=== PATIENT | female | born 1930 | race Caucasian/White ===

== ENCOUNTER → 2016-08-30 | Outpatient (CLI) | payer OTHER ==
[~2016-08-30] MED LIST: AMLO-110 PO; AMOX1TAB43 PO; CLC100 PO; DICL1GEL12 TOP; GLC/500 PO; LISI20TA3 PO; METO-217 PO; METO50TA16 PO; MRLP17 PO; OXYC-57 PO; SIMV40TA2 PO; SIMV40TA4 PO; TRIA0.1C2 TOP; ULT50X PO
[2016-08-30 12:34] LABS: BASO % 0.2 %; BASO ABS # 0.02 K/uL (0-0.2); COMPLETE YES; EOS % 2.1 %; HEMATOCRIT 37.8 % (37-47); IG% 0.3 %; LYMPH % 24.6 %; LYMPH ABS # 2.24 K/uL (1.2-3.4); MEAN CELL VOLUME 87.5 fL (80-100); MEAN CORPUSCULAR HEMOGLOBIN 28.9 pg (25-34); MEAN CORPUSCULAR HGB CONC 33.1 g/dl (32-36); MEAN PLATELET VOLUME 10.1 fL (7.4-10.4); MONO % 7.5 %; NEUT % 65.3 %; PLATELET COUNT 252 K/uL (130-400); RED BLOOD COUNT 4.32 M/uL (4.2-5.4); WHITE BLOOD COUNT 9.12 K/uL (4.8-10.8)
[2016-08-30 13:08] LABS: CALCIUM 9.3 mg/dl (8.5-10.1)
[2016-08-30 13:16] LABS: ESTIMATED AVERAGE GLUCOSE 143 mg/dl; HA1C FLAG Normal (Normal)
[2016-08-30 13:17] LABS: ALT/SGPT 19 U/L (12-78); AST/SGOT 15 U/L (15-37); BLOOD UREA NITROGEN 21 mg/dl (7-18); BUN/CREATININE RATIO 23.9 (10-20); CARBON DIOXIDE 25 mmol/L (21-32); CHLORIDE 108 mmol/L (98-107); CHOLESTEROL 162 mg/dl (0-200); CREATININE 0.87 mg/dl (0.60-1.20); GLUCOSE 125 mg/dl (70-99); POTASSIUM 4.1 mmol/L (3.5-5.1); SODIUM 141 mmol/L (136-145); TRIGLYCERIDES 123 mg/dl (0-150); VERY LOW DENSITY LIPOPROT CALC 25 mg/dl
[2016-08-30 13:41] LABS: ALB/GLOB RATIO 0.9 (0.9-2); ALKALINE PHOSPHATASE 110 U/L (45-117); CHOLESTEROL/HDL RATIO 3.2; HDL CHOLESTEROL 51 mg/dl; LDL CHOLESTEROL CALCULATED 86 mg/dl
== END | disposition home or self-care (01) ==
LOC: C.LABBFT 10:12
PROVIDERS: ATTEND Internal Medicine
DX: E78.00 Pure hypercholesterolemia, unspecified (principal); I10 Essential (primary) hypertension; E11.9 Type 2 diabetes mellitus without complications

== ENCOUNTER → 2016-12-19 | Outpatient (CLI) | payer OTHER | END | disposition home or self-care (01) | LOC: C.LABSPEC 16:51 | PROVIDERS: ATTEND Nurse Practitioner Family | DX: R10.2 Pelvic and perineal pain (principal) ==

== ENCOUNTER → 2016-12-20 | Outpatient (CLI) | payer OTHER | END | disposition home or self-care (01) | LOC: C.LABSPEC 17:31 | PROVIDERS: ATTEND Nurse Practitioner Family | DX: R10.2 Pelvic and perineal pain (principal) ==

== ENCOUNTER 2016-12-28 13:23 | Inpatient (IN) | payer OTHER ==
[~2016-12-28] VITALS: Ht 152.4 cm; Wt 62.1 kg
[~2016-12-28 13:23] MED LIST changes: -AMLO-110 PO; -AMOX1TAB43 PO; -CLC100 PO; -LISI20TA3 PO; -METO-217 PO; -MRLP17 PO; -OXYC-57 PO; -SIMV40TA2 PO; -TRIA0.1C2 TOP
[2016-12-28 14:15] LABS: BASO % 0.2 %; BASO ABS # 0.03 K/uL (0-0.2); COMPLETE YES; HEMATOCRIT 36.6 % (37-47); IG% 0.4 %; LYMPH % 17.6 %; MEAN CELL VOLUME 85.5 fL (80-100); MEAN CORPUSCULAR HEMOGLOBIN 29.2 pg (25-34); MEAN CORPUSCULAR HGB CONC 34.2 g/dl (32-36); MEAN PLATELET VOLUME 10.2 fL (7.4-10.4); MONO % 5.7 %; NEUT % 75.1 %; PLATELET COUNT 231 K/uL (130-400); RED BLOOD COUNT 4.28 M/uL (4.2-5.4); WHITE BLOOD COUNT 15.38 K/uL (4.8-10.8)
[2016-12-28 14:29] LABS: ALT/SGPT 19 U/L (12-78); AST/SGOT 21 U/L (15-37); BLOOD UREA NITROGEN 24 mg/dl (7-18); CALCIUM 9.2 mg/dl (8.5-10.1); CARBON DIOXIDE 23 mmol/L (21-32); CHLORIDE 107 mmol/L (98-107); CREATININE 0.92 mg/dl (0.60-1.20); GLUCOSE 165 mg/dl (70-99); POTASSIUM 3.6 mmol/L (3.5-5.1); SODIUM 139 mmol/L (136-145)
[2016-12-28 14:32] LABS: ALKALINE PHOSPHATASE 116 U/L (45-117)
[2016-12-28] MEDS ORDERED: AMLO-110 PO (14:56)
[2016-12-28] MEDS ORDERED: TRIA0.1C2 TOP (14:56)
[2016-12-28] MEDS ORDERED: CLC100 PO (14:56)
[2016-12-28] MEDS ORDERED: LISI20TA3 PO (14:56)
[2016-12-28] MEDS ORDERED: METO-217 PO (14:56)
[2016-12-28] MEDS ORDERED: SIMV40TA2 PO (14:57)
--- NOTE | 2016-12-28 15:02 | DIAGNOSTIC IMAGING REPORT ---
HEAD CT NONCONTRAST CT DOSE: 1076.59 mGy.cm HISTORY: fall hit head TECHNIQUE: Multiaxial CT images of the head were performed without the use of intravenous contrast. Automated exposure control was utilized for this study. A dose lowering technique was utilized adhering to the principles of ALARA. Comparison: No priors for comparison due to PACS downtime. Findings: The mastoid or cells are clear. Gas at the sella turcica may be venous. Right facial fractures are better appreciated on the same day facial CT. There is hemorrhage within the right max a sinus and right nasal cavity. There is no mass, hematoma, midline shift, acute infarct. White matter hypodensity is nonspecific but suggestive of microvascular ischemic change. The ventricles and sulci demonstrate mild age-related involutional changes. Impression: No acute intracranial abnormality. Right facial fractures are better appreciated on the same day facial CT. Electronically signed by: Scott Thapa M.D. 12/28/2016 3:00 PM Dictated Date/Time: 12/28/2016 2:48 PM
--- NOTE | 2016-12-28 15:04 | DIAGNOSTIC IMAGING REPORT ---
MAXILLOFACIAL CT WITHOUT CONTRAST CLINICAL HISTORY: Fall with head injury. COMPARISON STUDY: None available at time of interpretation due to PACS downtime. TECHNIQUE: A maxillofacial CT was performed without IV contrast. Coronal and sagittal reformats were viewed. A dose lowering technique was utilized adhering to the principles of ALARA. FINDINGS: Numerous acute right-sided facial fractures are noted including comminuted, displaced fractures of the anterior, lateral medial felder of the right maxillary sinus which extend through the right orbital floor. There is a comminuted, displaced right orbital floor fracture with herniation of orbital fat through the defect. There is a comminuted mildly displaced fracture of the lateral wall the right orbit and acute nondisplaced fractures of the right side traumatic arch. In addition, a moderately displaced right nasal bone fracture is noted as well as comminuted, displaced fractures of the nasal septum. There is soft tissue gas and infiltration within the right infraorbital region. There is hemorrhage within the lateral aspect of the right orbit, adjacent to the lateral rectus muscle. Globes are intact. The head will be reported separately. There is suspected hemorrhage within the right sphenoid sinus. Postoperative findings involving the pharynx are incidentally noted. Previous mandibular fixation is noted. Alignment of the temporomandibular joints is anatomic. IMPRESSION: Numerous acute right-sided facial fractures, including comminuted displaced fractures of the right orbital floor with herniation of a small amount of orbital fat through the defect. Fractures of the medial, lateral and anterior felder of the right maxillary sinus, right zygomatic arch, lateral wall of the the right orbit, right nasal bone and nasal septum, as described above. Right globe intact. Small amount of hemorrhage within the lateral aspect of the right orbit. Hemorrhage within the right maxillary and sphenoid sinuses. Right facial soft tissue swelling and soft tissue gas. Electronically signed by: Bubba Kellogg M.D. 12/28/2016 3:03 PM Dictated Date/Time: 12/28/2016 2:48 PM
--- NOTE | 2016-12-28 15:10 | DIAGNOSTIC IMAGING REPORT ---
RIGHT WRIST 4 VIEWS CLINICAL HISTORY: Right wrist pain. FINDINGS: 4 views of the right wrist are obtained. No prior studies are available for comparison at the time of dictation. The skeletal structures are osteopenic. There is a comminuted fracture through the base of the ulnar styloid. There is an impacted and comminuted fracture of the distal radial metaphysis with apex volar angulation. No definite intra-articular extension is seen. The radiocarpal articulation appears maintained. Mild arthritic change is noted throughout the wrist. Soft tissue swelling is seen around the fractures. IMPRESSION: 1. There is an impacted, comminuted, and angulated fracture of the distal radial metaphysis. 2. There is a comminuted fracture through the base of the ulnar styloid. Electronically signed by: Aidan Landers M.D. 12/28/2016 3:09 PM Dictated Date/Time: 12/28/2016 3:07 PM
--- NOTE | 2016-12-28 15:10 | DIAGNOSTIC IMAGING REPORT ---
CHEST ONE VIEW PORTABLE CLINICAL HISTORY: Fall. COMPARISON STUDY: Chest radiograph October 27, 2013. FINDINGS: Lower cervical surgical clips are noted. An old right humeral neck fracture is noted. There is no pneumothorax or pleural effusion. There is no evidence of pulmonary edema. Mild cardiomegaly is noted. Right axilla surgical clips are noted. IMPRESSION: No acute cardiopulmonary findings. No significant change in appearance of the chest. Electronically signed by: Bubba Kellogg M.D. 12/28/2016 3:09 PM Dictated Date/Time: 12/28/2016 3:07 PM
--- NOTE | 2016-12-28 15:11 | DIAGNOSTIC IMAGING REPORT ---
PELVIS 1 OR 2 VIEW ROUTINE CLINICAL HISTORY: Fall. COMPARISON STUDY: CT of the abdomen and pelvis May 21, 2012. FINDINGS: A moderate to large amount stool is noted within the rectum. There is no acute fracture within the pelvis or the hips. Sacroiliac joints and symphysis pubis appear intact. IMPRESSION: No acute fracture within the pelvis or hips. Electronically signed by: Bubba Kellogg M.D. 12/28/2016 3:10 PM Dictated Date/Time: 12/28/2016 3:09 PM
--- NOTE | 2016-12-28 15:36 | DIAGNOSTIC IMAGING REPORT ---
CT SCAN OF THE CERVICAL SPINE CLINICAL HISTORY: Fall. Trauma. COMPARISON STUDY: CT scan of the neck dated 09/18/2005. TECHNIQUE: CT scan of the cervical spine is performed from the skull base to the upper thoracic spine. Images are reviewed in the axial, sagittal, and coronal planes. IV contrast was not administered for this examination. A dose lowering technique was utilized adhering to the principles of ALARA. FINDINGS: Skeletal structures: The skeletal structures are osteopenic. There is no evidence of fracture or subluxation involving the cervical spine. Vertebral body height and alignment are maintained. The odontoid process and lateral masses are intact. The atlantoaxial articulation is preserved noting productive degenerative change. The spinous processes appear intact. A sclerotic lesion in the body of T3 is unchanged dating back to 2005 and likely represents a bone island. Small anterior osteophytes are seen throughout. There is moderate multilevel cervical spondylosis. Uncovertebral and facet arthropathy contribute sterile foraminal narrowing at several levels. Intervertebral discs: There is moderate disc space narrowing seen at C4-C5 and C5-C6. Mild disc space narrowing is seen at the remaining cervical levels. Central canal: Grossly patent. Soft tissues: The prevertebral and paraspinous soft tissues are within normal limits. Atherosclerotic calcification is noted in the carotid bulbs. Numerous surgical clips are scattered throughout the neck. No cervical adenopathy is seen. Calvarium: The visualized calvarium at the skull base appears intact. Brain parenchyma: Partially visualized brain parenchyma the skull base is within normal limits noting age-related involutional change. Sinuses and mastoids: There is fluid within the right sphenoid sinus. The mastoid air cells are well pneumatized. Lung apices: Clear as visualized. IMPRESSION: 1. There is no evidence of fracture or subluxation involving the cervical spine. 2. Osteopenia and spondylotic change as above. 3. Numerous surgical clips are seen throughout the neck. Correlation with the patient's operative history will be required. Electronically signed by: Aidan Landers M.D. 12/28/2016 3:35 PM Dictated Date/Time: 12/28/2016 3:30 PM
[2016-12-28] MEDS ORDERED: AMOXICILLIN/CLAVULANATE TAB 500 MG TAB PO ONE (16:15)
[2016-12-28] MEDS ORDERED: POLYETHYLENE (MIRALAX) 17 GM PACK PO PRN (16:30)
[2016-12-28] MEDS ORDERED: ONDANSETRON INJ 2 MG/ML 2 ML VIAL IV PRN (16:30)
[2016-12-28] MEDS ORDERED: ALUMINUM/MAGNESIUM/SIMETH (MAALOX MAX) 30 ML UDC PO PRN (16:30)
[2016-12-28] MEDS ORDERED: ACETAMINOPHEN 325 MG TAB PO PRN (16:30)
[2016-12-28] MEDS ORDERED: MAGNESIUM HYDROXIDE SUSP 30 ML UDC PO PRN (16:30)
[2016-12-28] MEDS ORDERED: DOCUSATE SODIUM 100 MG CAP PO PRN (16:30)
[2016-12-28 16:50] VITALS: O2SAT 95; Ht 152.4 cm; Wt 62.1 kg
[2016-12-28] MEDS ORDERED: IV FLUIDS COMPLETED PRN (17:00)
--- NOTE | 2016-12-28 17:17 | EMERGENCY ROOM VISIT NOTE ---
History Report prepared by Thien: Kiera Wheeler Under the Supervision of: Dr. Mathew Draper D.O. 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 The patient lives at home by herself. She was taking out her trash and was outside throwing it in the dumpster. When she was walking away her foot caught on the broken sidewalk and the patient fell face first to the ground. She denies passing out or LOC. The patient is currently complaining of right sided facial pain surrounding her right eye and going down into her right cheek. She also reports right wrist pain that is worse with movement. The patient rates her pain as an 8 /10 in severity. She broke her dentures in the fall. A neighbor witnessed the fall and called for help. Pt denies headache, change in vision, chest pain, shortness of breath, nausea, vomiting, diarrhea, abdominal pain, and urinary symptom. The patient denies any injury to the legs. She does not take any blood thinners. Source of History: patient Onset: LICENSED APPRAISER Position: other (global) Symptom Intensity: 8/10 Timing: other (episode) Modifying Factors (Worsening): movement (of right wrist) Associated Symptoms: No LOC, No headache, No chest pain, No SOB, No nausea, No vomiting, No abdominal pain, No melena, No diarrhea, No urinary symptoms Note: Pt notes right sided facial pain and right wrist pain. Pt denies changes in vision. Review of Systems See HPI for pertinent positives & negatives. A total of 10 systems reviewed and were otherwise negative. Past Medical & Surgical Medical Problems: (1) Arthritis (2) Fall (3) Hypertension (4) Oral cancer Family History Cancer Diabetes mellitus Hypertension Social History Smoking Status: Never Smoker Marital Status: Housing Status: lives alone, unknown Occupation Status: retired Current/Historical Medications Scheduled Amlodipine (Norvasc), 5 MG PO QAM Lisinopril (Prinivil), 20 MG PO DAILY Metoprolol Succinate (Toprol Xl), 50 MG PO DAILY Simvastatin (Zocor), 40 MG PO HS Triamcinolone Acetonide (Topic (Triderm), 1 APPLN TOP BID Scheduled PRN Docusate Sodium (Docusate Sodium), 100 MG PO DAILY PRN for Constipation Allergies Coded Allergies: No Known Allergies (Verified , 10/27/13) Physical Exam Vital Signs Date Time Temp Pulse Resp B/P (MAP) Pulse Ox O2 Delivery O2 Flow Rate FiO2 12/28/16 17:01 143/75 12/28/16 16:31 133/56 12/28/16 16:01 145/72 12/28/16 15:31 143/72 12/28/16 14:23 82 19 12/28/16 14:08 85 19 12/28/16 14:06 182/78 12/28/16 14:06 87 12/28/16 13:54 36.5 94 15 182/78 95 Room Air 12/28/16 13:53 95 21 95 Physical Exam GENERAL: alert, well appearing, well nourished, no distress, non-toxic HEAD: normal cephalic. Contusion to the right side of the face with bruising over the right eye, eyelid, and cheek. Nose is deviated to the left with mild oozing from the right nares. EYE EXAM: normal conjunctiva, PERRL and EOM's grossly intact OROPHARYNX: no exudate, no erythema, lips, buccal mucosa, and tongue normal and mucous membranes are moist EARS: TMs clear b/l NECK: supple, no nuchal rigidity, no adenopathy, non-tender CHEST: stable to compression anteriorly and posteriorly LUNGS: clear to auscultation. Normal chest wall mechanics HEART: no murmurs, S1 normal and S2 normal ABDOMEN: abdomen soft, non-tender, normo-active bowel sounds, no masses, no rebound or guarding. PELVIS: stable to compression anteriorly and posteriorly BACK: Back is symmetrical on inspection and there is no deformity, no midline tenderness, no CVA tenderness. Old bruising in the left upper thoracic region. UPPER EXTREMITIES: Pain on palpation to the right wrist, no obvious deformity. Radial pulses 2/4 bilaterally. Grasp and abduction intact. LOWER EXTREMITIES: Small bruise to the right kneecap, abrasion to the left knee , full active and passive range of motion of all joints without tenderness to palpation NEURO EXAM: Awake, alert, oriented to person and place but not year, at baseline per family. Cranial nerves II-XII grossly intact, normal speech, no gross weakness of legs. GCS: 15. Medical Decision & Procedures ER Provider Diagnostic Interpretation: Radiology results as stated below per my review and the radiologist's interpretation: RIGHT WRIST 4 VIEWS CLINICAL HISTORY: Right wrist pain. FINDINGS: 4 views of the right wrist are obtained. No prior studies are available for comparison at the time of dictation. The skeletal structures are osteopenic. There is a comminuted fracture through the base of the ulnar styloid. There is an impacted and comminuted fracture of the distal radial metaphysis with apex volar angulation. No definite intra-articular extension is seen. The radiocarpal articulation appears maintained. Mild arthritic change is noted throughout the wrist. Soft tissue swelling is seen around the fractures. IMPRESSION: 1. There is an impacted, comminuted, and angulated fracture of the distal radial metaphysis. 2. There is a comminuted fracture through the base of the ulnar styloid. Electronically signed by: Aidan Landers M.D. 12/28/2016 3:09 PM Dictated Date/Time: 12/28/2016 3:07 PM PELVIS 1 OR 2 VIEW ROUTINE CLINICAL HISTORY: Fall. COMPARISON STUDY: CT of the abdomen and pelvis May 21, 2012. FINDINGS: A moderate to large amount stool is noted within the rectum. There is no acute fracture within the pelvis or the hips. Sacroiliac joints and symphysis pubis appear intact. IMPRESSION: No acute fracture within the pelvis or hips. Electronically signed by: Bubba Kellogg M.D. 12/28/2016 3:10 PM Dictated Date/Time: 12/28/2016 3:[address] WITHOUT CONTRAST CLINICAL HISTORY: Fall with head injury. COMPARISON STUDY: None available at time of interpretation due to PACS downtime. TECHNIQUE: A maxillofacial CT was performed without IV contrast. Coronal and sagittal reformats were viewed. A dose lowering technique was utilized adhering to the principles of ALARA. FINDINGS: Numerous acute right-sided facial fractures are noted including comminuted, displaced fractures of the anterior, lateral medial felder of the right maxillary sinus which extend through the right orbital floor. There is a comminuted, displaced right orbital floor fracture with herniation of orbital fat through the defect. There is a comminuted mildly displaced fracture of the lateral wall the right orbit and acute nondisplaced fractures of the right side traumatic arch. In addition, a moderately displaced right nasal bone fracture is noted as well as comminuted, displaced fractures of the nasal septum. There is soft tissue gas and infiltration within the right infraorbital region. There is hemorrhage within the lateral aspect of the right orbit, adjacent to the lateral rectus muscle. Globes are intact. The head will be reported separately. There is suspected hemorrhage within the right sphenoid sinus. Postoperative findings involving the pharynx are incidentally noted. Previous mandibular fixation is noted. Alignment of the temporomandibular joints is anatomic. IMPRESSION: Numerous acute right-sided facial fractures, including comminuted displaced fractures of the right orbital floor with herniation of a small amount of orbital fat through the defect. Fractures of the medial, lateral and anterior felder of the right maxillary sinus, right zygomatic arch, lateral wall of the the right orbit, right nasal bone and nasal septum, as described above. Right globe intact. Small amount of hemorrhage within the lateral aspect of the right orbit. Hemorrhage within the right maxillary and sphenoid sinuses. Right facial soft tissue swelling and soft tissue gas. Electronically signed by: Bubba Kellogg M.D. 12/28/2016 3:03 PM Dictated Date/Time: 12/28/2016 2:[address]AST CT DOSE: 1076.59 mGy.cm HISTORY: fall hit head TECHNIQUE: Multiaxial CT images of the head were performed without the use of intravenous contrast. Automated exposure control was utilized for this study. A dose lowering technique was utilized adhering to the principles of ALARA. Comparison: No priors for comparison due to PACS downtime. Findings: The mastoid or cells are clear. Gas at the sella turcica may be venous. Right facial fractures are better appreciated on the same day facial CT. There is hemorrhage within the right max a sinus and right nasal cavity. There is no mass, hematoma, midline shift, acute infarct. White matter hypodensity is nonspecific but suggestive of microvascular ischemic change. The ventricles and sulci demonstrate mild age-related involutional changes. Impression: No acute intracranial abnormality. Right facial fractures are better appreciated on the same day facial CT. Electronically signed by: Scott Thapa M.D. 12/28/2016 3:00 PM Dictated Date/Time: 12/28/2016 2:48 PM CHEST ONE VIEW PORTABLE CLINICAL HISTORY: Fall. COMPARISON STUDY: Chest radiograph October 27, 2013. FINDINGS: Lower cervical surgical clips are noted. An old right humeral neck fracture is noted. There is no pneumothorax or pleural effusion. There is no evidence of pulmonary edema. Mild cardiomegaly is noted. Right axilla surgical clips are noted. IMPRESSION: No acute cardiopulmonary findings. No significant change in appearance of the chest. Electronically signed by: Bubba Kellogg M.D. 12/28/2016 3:09 PM Dictated Date/Time: 12/28/2016 3:[address] SCAN OF THE CERVICAL SPINE CLINICAL HISTORY: Fall. Trauma. COMPARISON STUDY: CT scan of the neck dated 09/18/2005. TECHNIQUE: CT scan of the cervical spine is performed from the skull base to the upper thoracic spine. Images are reviewed in the axial, sagittal, and coronal planes. IV contrast was not administered for this examination. A dose lowering technique was utilized adhering to the principles of ALARA. FINDINGS: Skeletal structures: The skeletal structures are osteopenic. There is no evidence of fracture or subluxation involving the cervical spine. Vertebral body height and alignment are maintained. The odontoid process and lateral masses are intact. The atlantoaxial articulation is preserved noting productive degenerative change. The spinous processes appear intact. A sclerotic lesion in the body of T3 is unchanged dating back to 2005 and likely represents a bone island. Small anterior osteophytes are seen throughout. There is moderate multilevel cervical spondylosis. Uncovertebral and facet arthropathy contribute sterile foraminal narrowing at several levels. Intervertebral discs: There is moderate disc space narrowing seen at C4-C5 and C5-C6. Mild disc space narrowing is seen at the remaining cervical levels. Central canal: Grossly patent. Soft tissues: The prevertebral and paraspinous soft tissues are within normal limits. Atherosclerotic calcification is noted in the carotid bulbs. Numerous surgical clips are scattered throughout the neck. No cervical adenopathy is seen. Calvarium: The visualized calvarium at the skull base appears intact. Brain parenchyma: Partially visualized brain parenchyma the skull base is within normal limits noting age-related involutional change. Sinuses and mastoids: There is fluid within the right sphenoid sinus. The mastoid air cells are well pneumatized. Lung apices: Clear as visualized. IMPRESSION: 1. There is no evidence of fracture or subluxation involving the cervical spine. 2. Osteopenia and spondylotic change as above. 3. Numerous surgical clips are seen throughout the neck. Correlation with the patient's operative history will be required. Electronically signed by: Aidan Landers M.D. 12/28/2016 3:35 PM Dictated Date/Time: 12/28/2016 3:30 PM Laboratory Results 12/28/16 13:00 Red Blood Count 4.28, Mean Corpuscular Volume 85.5, Mean Corpuscular Hemoglobin 29.2, Mean Corpuscular Hemoglobin Concent 34.2, Mean Platelet Volume 10.2, Neutrophils (%) (Auto) 75.1, Lymphocytes (%) (Auto) 17.6, Monocytes (%) (Auto) 5.7, Eosinophils (%) (Auto) 1.0, Basophils (%) (Auto) 0.2, Neutrophils # (Auto) 11.56, Lymphocytes # (Auto) 2.70, Monocytes # (Auto) 0.88, Eosinophils # (Auto) 0.15, Basophils # (Auto) 0.03 12/28/16 13:00 Test 12/28/16 13:00 12/28/16 15:30 White Blood Count 15.38 K/uL (4.8-10.8) Red Blood Count 4.28 M/uL (4.2-5.4) Hemoglobin 12.5 g/dL (12.0-16.0) Hematocrit 36.6 % (37-47) Mean Corpuscular Volume 85.5 fL (80-100) Mean Corpuscular Hemoglobin 29.2 pg (25-34) Mean Corpuscular Hemoglobin Concent 34.2 g/dl (32-36) Platelet Count 231 K/uL (130-400) Mean Platelet Volume 10.2 fL (7.4-10.4) Neutrophils (%) (Auto) 75.1 % Lymphocytes (%) (Auto) 17.6 % Monocytes (%) (Auto) 5.7 % Eosinophils (%) (Auto) 1.0 % Basophils (%) (Auto) 0.2 % Neutrophils # (Auto) 11.56 K/uL (1.4-6.5) Lymphocytes # (Auto) 2.70 K/uL (1.2-3.4) Monocytes # (Auto) 0.88 K/uL (0.11-0.59) Eosinophils # (Auto) 0.15 K/uL (0-0.5) Basophils # (Auto) 0.03 K/uL (0-0.2) RDW Standard Deviation 41.1 fL (36.4-46.3) RDW Coefficient of Variation 13.1 % (11.5-14.5) Immature Granulocyte % (Auto) 0.4 % Immature Granulocyte # (Auto) 0.06 K/uL (0.00-0.02) Anion Gap 9.0 mmol/L (3-11) Est Creatinine Clear Calc Drug Dose 34.8 ml/min Estimated GFR () 64.4 Estimated GFR (Non- 55.6 BUN/Creatinine Ratio 26.0 (10-20) Calcium Level 9.2 mg/dl (8.5-10.1) Total Bilirubin 0.4 mg/dl (0.2-1) Direct Bilirubin < 0.1 mg/dl (0-0.2) Aspartate Amino Transf (AST/SGOT) 21 U/L (15-37) Alanine Aminotransferase (ALT/SGPT) 19 U/L (12-78) Alkaline Phosphatase 116 U/L (45-117) Total Protein 7.6 gm/dl (6.4-8.2) Albumin 3.8 gm/dl (3.4-5.0) Lipase 111 U/L (73-393) Laboratory results per my review. Medications Administered Medications (Trade) Dose Ordered Sig/Abdi Route Start Time Stop Time Status Last Admin Dose Admin Amoxicillin/ Clavulanate Potassium (Augmentin Tab) 500 mg NOW ONCE PO 12/28/16 16:15 12/28/16 16:16 DC 12/28/16 16:41 500 MG ED Course ED COURSE: Vital signs were reviewed and showed hypertensive. The patients medical record was reviewed The above diagnostic studies were performed and reviewed. ED treatments and interventions as stated above. 1340: The patient was evaluated in room A12B. A complete history and physical examination was performed. 1527: I updated the patient and her family at the bedside. 1603: I discussed the patient's case with Dr. Powell of oral maxillofacial surgery. He recommended having ophthalmology evaluate the patient. 1614: I reviewed the patient's case with Dr. Ferreira. [facility] will evaluate the patient for further management. 1615: Augmentin 500 mg PO 1616: Upon reevaluation, the patient is doing well. I discussed my findings with the patient and she understands and agrees with the treatment plan. Based on the patients age, coexisting illnesses, exam and lab findings the decision to treat as an inpatient was made. The patient remained stable while under my care. The patient will be evaluated for further management. 1635: I discussed the patient's case with Dr. Madison of ophthalmology. He will come to the ED to evaluate the patient. Medical Decision Differential diagnoses include major intracranial, cervical, spinal, thoracic, abdominal, pelvic and neurologic injury. Fracture, contusion, sprain, strain, laceration, abrasions included as well. Patient is an 86-year-old female who presents the ER following a fall where she tripped. She hit her right face. She denies any loss consciousness. She does live at home alone by herself. She is currently at her baseline per family. CT head was negative. CT face shows multiple fractures. There is no which are bulbar hematoma on CT. When she opens her eye she states she does not have any double or blurry vision. Eye exam is extremely difficult. Unable to 2 puffs to monitor. Discussed with Dr. Powell and he notes she is a nonoperative candidate due to her age unless severe visual issues. He will follow her up as an outpatient. He did recommend ophthalmology. I did consult ophthalmology to evaluate her in the ER. Discussed the case with orthopedics at 5:10 PM. They recommended a splint and they will reset the fracture of her right distal radial ulnar tomorrow. Patient's pain was controlled while in the ER. Ophthalmology will evaluate her shortly. I discussed case with internal medicine. She was admitted as neither one of her family members was able to take her home and to assist. Medication Reconcilliation Current Medication List: was personally reviewed by me Blood Pressure Screening Patient's blood pressure: Elevated blood pressure Blood pressure disposition: Elevated BP felt to be situational Consults Time Called: 1557 Consulting Physician: Dr. Powell Returned Call: 1603 I discussed the patient's case with Dr. Powell of oral maxillofacial surgery. He recommended having ophthalmology evaluate the patient. Additional Consults: Time Called: 1611 Consulted Physician: Dr. Ferreira Returned Call: 1614 Additional Comments: I reviewed the patient's case with Dr. Ferreira. [facility] will evaluate the patient for further management. Time Called: 1630 Consulted Physician: Dr. Madison Returned Call: 1635 Additional Comments: I discussed the patient's case with Dr. Madison of ophthalmology. He will come to the ED to evaluate the patient. Impression Primary Impression: Fall Additional Impressions: Multiple facial fractures Fracture of distal radius and ulna Scribe Attestation The scribe's documentation has been prepared under my direction and personally reviewed by me in its entirety. I confirm that the note above accurately reflects all work, treatment, procedures, and medical decision making performed by me. Departure Information Dispostion Being Evaluated By Hospitalist Bony Griffiths M.D. (PCP) Problem Qualifiers Primary Impression: Fall Encounter type: initial encounter Qualified Codes: W19.XXXA - Unspecified fall, initial encounter Additional Impressions: Multiple facial fractures Encounter type: initial encounter Fracture type: closed Qualified Codes: S02.92XA - Unspecified fracture of facial bones, initial encounter for closed fracture Fracture of distal radius and ulna Encounter type: initial encounter Fracture type: closed Laterality: right Qualified Codes: S52.501A - Unspecified fracture of the lower end of right radius, initial encounter for closed fracture; S52.601A - Unspecified fracture of lower end of right ulna, initial encounter for closed fracture
[2016-12-28 17:19] LABS: INR 1.1 (0.9-1.1); PARTIAL THROMBOPLASTIN RATIO 1.1; PROTHROMBIN TIME (PATIENT) 11.4 SECONDS (9.0-12.0)
[2016-12-28 17:30] VITALS: BP 150/75; PULSE 98; TEMP 36.5; O2SAT 94
[2016-12-28 18:02] LABS: MANUAL MICROSCOPIC REQUIRED? NO; REVIEW REQ? NO; URINE APPEARANCE CLEAR (CLEAR); URINE BILIRUBIN NEG (NEG); URINE COLOR YELLOW; URINE NITRITE NEG (NEG); URINE PH 7.5 (4.5-7.5); URINE SPECIFIC GRAVITY 1.018 (1.000-1.030); UROBILINOGEN NEG (NEG); ZZURINE CULT IF INDIC CATH NO
--- NOTE | 2016-12-28 18:32 | Ophthalmology Consultation ---
Ophthalmology Consultation Date of Service: Dec 28, 2016. Requested By: [facility] History of Present Illness: 86 y/o female admitted s/p fall. Multiple facial fractures including orbital fxs. CC: "I fell and hit my face" Vision: unchanged Location (of CC): OD Quality/Severity: moderate Duration: 1 day Timing: sudden Context: fell today Associated Signs/Symptoms: pain Modifying Factors: none No other eye complaints. Mood and Affect: confused Past Ocular History: Right Eye: 1. cataract surgery Left Eye: 1. cataract surgery Medications: see EMR Relevant Past Medical History: see EMR [facility] sc w/ near card OD: 20/30 OS: 20/30 IOP: 21 OD and 18 OS w/ [place] VF: full to count fingers OU Motility: full OU External: +ecchymosis/edema OD; The ocular adnexae are unremarkable OS SLE: Lids/Lashes: +ecchymosis/edema OD; wnl OS Conjunctiva/Sclera: +anna/chemosis OD; quiet OS Cornea: clear OU Anterior Chamber: deep and quiet OU Iris: normal OU; no NVI OU Lens: PCIOL OU Dilated fundus exam OD: vitreous: clear w/ pvd optic nerve: 0.2, no edema/pallor/NVD macula: trace druse vessels: wnl Midperiphery: wnl periphery: no RT/RD Dilated fundus exam OS: vitreous: clear w/ pvd optic nerve: 0.2, no edema/pallor/NVD macula: trace druse vessels: wnl Midperiphery: wnl periphery: no RT/RD Assessment and Plan: 1. Orbital and facial fractures OD -no diplopia, no enophthalmos, no globe rupture, no hyphema -no intervention required from ophthalmologic standpoint at this time -recommend no nose blowing; t/c Abx coverage for grm+ -f/u w/ regular eye doc (Dr. Bright Juan) when d/c from [facility] Jenni Madison DO
[2016-12-28] MEDS: AMOXICILLIN/CLAVULANATE TAB 875 MG TAB PO SCH (18:38)
[2016-12-28] MEDS ORDERED: OXYCODONE/ACETAMINOPHEN 5-325 TAB PO PRN (20:30)
[2016-12-28] MEDS: SIMVASTATIN 40 MG TAB PO SCH (21:15)
[2016-12-28] MEDS: HEPARIN SOD 5000 UNIT/0.5 ML CARP SQ SCH (21:16)
--- NOTE | 2016-12-28 21:30 | History and Physical ---
History & Physical Date of Service Dec 28, 2016. History & Physical obs [id number]
--- NOTE | 2016-12-28 21:42 | Progress Note ---
Progress Note Date of Service Dec 28, 2016. Progress Note no s/s infection to correlate w leukocytosis, suspect demargination from fall/ trauma. repeat in AM. follow clinically
--- NOTE | 2016-12-28 23:00 | HISTORY & PHYSICAL EXAMINATION ---
DATE OF ADMISSION: 12/28/2016 CHIEF COMPLAINT: Face and arm pain. HISTORY OF PRESENT ILLNESS: The patient is a very pleasant 86-year-old female accompanied by her family, who notes she was taking out the trash and then when she was walking, she believes she caught a crack in the sidewalk with her foot. She knows it was definitely a trip and mechanical fall and she had no syncope, no loss of consciousness, and she remembers the events, but unfortunately she fell really predominantly on the right side of her face and her right arm. She again had no loss of consciousness; however, since then, she has had a lot of right-sided facial pain, pain around her eye, her right cheek, right wrist and hand pain. She denies any chest pain, abdominal pain. No shortness of breath. No other pain anywhere else. REVIEW OF SYSTEMS: Otherwise entirely negative except for as above. PAST MEDICAL HISTORY: Includes arthritis, type 2 diabetes, hypertension, hyperlipidemia. MEDICATIONS: Amlodipine 5 mg daily, lisinopril 20 mg daily, metoprolol succinate 50 mg daily, simvastatin 40 mg daily. SURGICAL HISTORY: Includes cataract surgery, throat mass resection, closed treatment of a prior arm fracture and a leg fracture. FAMILY HISTORY: Includes cancer and hypertension. SOCIAL HISTORY: She is not a smoker. She is . She lives at home with good supportive family. She is obviously retired. PHYSICAL EXAMINATION: VITAL SIGNS: Temp 36.5, pulse 94, respiratory rate 15, blood pressure 182/78, 95% on room air. GENERAL: She is awake, alert, oriented x3, pleasant, fairly hard of hearing, but with loud talking, she is able to communicate well, although she appears a little bit uncomfortable. In general, she is in no acute distress. HEENT: Normocephalic. Unfortunately, the right side of her face is swollen, her eye is swollen shut. There is diffuse ecchymosis really from just above her eye down to around just above the angle of her jaw. Mucous membranes are moist. CARDIOVASCULAR: Regular without rubs, murmurs or gallops. LUNGS: Clear to auscultation bilaterally, no rales, rhonchi or wheezes, with good effort. ABDOMEN: Soft, nondistended, nontender. No masses or organomegaly. EXTREMITIES: Without cyanosis, clubbing or edema, no calf tenderness, but her right upper extremity shows a deformity at the wrist. It is somewhat swollen and obviously tender. SKIN: No rashes, pallor or icterus outside of what is noted above on her face and her arm. MUSCULOSKELETAL: Shows the facial and wrist deformities. Otherwise, no gross lesions. NEUROLOGIC: Shows cranial nerves II-XII to be grossly intact as best can be assessed. Obviously, the right side of her face is somewhat difficult to assess due to the swelling but things appear intact. MENTAL STATE: Shows good recent and remote recall. Normal mood and affect. Good judgment and insight. LABORATORY DATA AND DIAGNOSTICS: CBC shows a white count of 15.4 with hemoglobin of 12.5, platelets of 231. PT of 11.4 with a PTT of 27.3. Complete metabolic panel with sodium 139, potassium 3.6, chloride 107, CO2 of 23, BUN 24, creatinine 0.92, calcium 9.2, glucose 165. Total bili 0.4 with a direct of 0.1, AST 21, ALT 19, alkaline phosphatase 116. Total protein of 7.6, albumin 3.8, lipase 111. Urinalysis is yellow, clear, specific gravity 1.018, 2+ ketones, 5-10 epithelial cells. Chest x-ray shows no acute cardiopulmonary findings and no change in appearance from prior. C-spine CT shows skeletal structures being osteopenic. No evidence of fracture or subluxation involving the C-spine. Vertebral body height and alignment are maintained. Odontoid process and lateral masses are intact. Atlantoaxial articulation preserved, noting productive degenerative change. Spinous processes intact. Sclerotic lesion in the body of T3 unchanged dating back to 2005, likely representing a bone island. Small anterior osteophyte seen throughout. Moderate multilevel cervical spondylosis. Uncovertebral and facet arthropathy contributing to several foraminal narrowing levels. Moderate disc space narrowing C4-C5 and C5-C6. Mild disc space narrowing at the remaining cervical levels. Prevertebral and paraspinous soft tissue were within normal limits. Atherosclerotic calcification noted in the carotid bulb. Numerous surgical clips scattered throughout the neck. No cervical adenopathy seen. Partially visualized brain parenchyma and skull base within normal limits, noting age-related involutional changes. Visualized calvarium at the skull base appears intact. Fluid in the right sphenoid sinus. Mastoid air cells are well pneumatized. Head CT shows no acute intracranial abnormality. Maxillofacial shows numerous right-sided facial fractures including a comminuted, displaced fracture of the right orbital floor with herniation of a small amount of orbital fat through the defect, fractures of the medial, lateral and anterior felder of the right maxillary sinus, right zygomatic arch, lateral wall of the right orbit, right nasal bone, nasal septum. Right globe is intact. Small amount of hemorrhage within the lateral aspect of the right orbit. Hemorrhage within the right maxillary and sphenoid sinuses. Right facial soft tissue swelling and soft tissue gas. Pelvis x-ray shows no acute fracture of the pelvis or the hips, and wrist x-ray shows an impacted, comminuted, angulated fracture of the distal radial metaphysis, comminuted fracture throughout the base of the ulnar styloid. ASSESSMENT AND PLAN: 1. Fall. This appears to be a mechanical fall. Fortunately, there is no evidence of syncope or other pathology at play. Unfortunately, she has had significant fractures from the fall. 2. Facial fractures. We will consult ophthalmology in regard to the orbital fracture, although I suspect it will be a case of allowing to heal on its own. The ER has already discussed the case with maxillofacial surgery who felt no acute intervention was needed. Certainly willing to follow up with the patient in the office next week. 3. Wrist fracture. Orthopedic consult for further management. Pain control to be ordered as well. 4. Osteopenia/osteoporosis. Check a vitamin D level. Otherwise, outpatient followup and management. 5. Hypertension. Continue her home meds. There is no evidence that orthostasis or syncope caused the fall and in fact she has actually been quite hypertensive since she has been here. 6. Hyperlipidemia. Continue her home meds. 7. Sinus fracture, have to treat as sort of a traumatic sinusitis. The ER started Augmentin, we will continue this. 8. Deep venous thrombosis prophylaxis, heparin subcu. DISPOSITION: She will be admitted to the [facility] with a high likelihood of needing rehab, PT/OT evals, and treatment. MERLY
[2016-12-28 23:24] VITALS: BP 152/77; PULSE 100; TEMP 36.3; O2SAT 97
[2016-12-29 00:18] VITALS: BP 149/73; PULSE 74; TEMP 36.6; O2SAT 93
[2016-12-29 06:49] VITALS: BP 151/70; PULSE 78; TEMP 36.7; O2SAT 96
[2016-12-29 07:05] LABS: BASO % 0.2 %; BASO ABS # 0.02 K/uL (0-0.2); COMPLETE YES; EOS % 0.5 %; HEMATOCRIT 35.2 % (37-47); IG% 0.5 %; LYMPH % 11.7 %; MEAN CELL VOLUME 85.2 fL (80-100); MEAN CORPUSCULAR HEMOGLOBIN 27.8 pg (25-34); MEAN CORPUSCULAR HGB CONC 32.7 g/dl (32-36); MEAN PLATELET VOLUME 9.5 fL (7.4-10.4); MONO % 9.2 %; NEUT % 77.9 %; PLATELET COUNT 209 K/uL (130-400); RED BLOOD COUNT 4.13 M/uL (4.2-5.4); WHITE BLOOD COUNT 12.87 K/uL (4.8-10.8)
[2016-12-29] MEDS: AMOXICILLIN/CLAVULANATE TAB 875 MG TAB PO SCH ×2 (08:24→16:29)
[2016-12-29] MEDS: AMLODIPINE BESYLATE 5 MG TAB PO SCH (08:25)
[2016-12-29] MEDS: LISINOPRIL 20 MG TAB PO SCH (08:26)
[2016-12-29] MEDS: METOPROLOL SUCC 50MG EXT REL TAB PO SCH (08:26)
[2016-12-29] MEDS: HEPARIN SOD 5000 UNIT/0.5 ML CARP SQ SCH ×2 (08:31→20:49)
[2016-12-29 15:01] VITALS: BP 150/75; PULSE 76; TEMP 36.5; O2SAT 95
[2016-12-29 15:30] VITALS: O2SAT 95
[2016-12-29] MEDS ORDERED: BISACODYL 10 MG SUPP PR STA (17:10)
[2016-12-29] MEDS: DOCUSATE SODIUM 100 MG CAP PO SCH (20:48)
[2016-12-29] MEDS: SIMVASTATIN 40 MG TAB PO SCH (20:48)
[2016-12-29] MEDS ORDERED: NSS + 20MEQ KCL 1000ML 1,000 ML IV SCH (21:00)
[2016-12-29] MEDS: MoRPHine SULFATE 4 MG/ML 1 ML CARP\\VIAL IV PRN (22:19)
[2016-12-30 00:18] VITALS: BP 149/73; PULSE 74; TEMP 36.6; O2SAT 93
--- NOTE | 2016-12-30 00:28 | Progress Note ---
Subjective Date of Service: Dec 29, 2016. Subjective Pt evaluation today including: conversation w/ patient, physical exam, chart review, lab review, review of studies, review of inpatient medication list Pain: denies facial pain or arm pain PO Intake: fair Voiding: incontinence during my visit she was pleasantly confused she knew she was in the hospital but couldn't tell me how she had fallen or where she denied any vaginal discharge, itching, or pain outpatient office records show she was seen about 10 days ago and had a vaginal culture showing strep Problem List Medical Problems: (1) Fracture of distal radius and ulna Status: Acute (2) Multiple facial fractures Status: Acute Review of Systems Respiratory: No shortness of breath Cardiac: No chest pain Abdomen: No pain Female : No dysuria Objective Vital Signs Date Time Temp Pulse Resp B/P (MAP) Pulse Ox O2 Delivery O2 Flow Rate FiO2 12/29/16 15:30 95 Room Air 12/29/16 15:01 36.5 76 18 150/75 (100) 95 Room Air 12/29/16 07:55 Room Air 12/29/16 06:49 36.7 78 15 151/70 (97) 96 Room Air 12/28/16 23:24 36.3 100 18 152/77 (102) 97 Room Air 12/28/16 23:20 Room Air Physical Exam General Appearance: no apparent distress, + pertinent finding (marked swelling of entire right half of the face with eccymoses; right eye eyelids swollen and nearly shut) Eyes: + abnormal sclerae exam (subconjunctival hemorrhage, right) ENT: + pertinent finding (in the posterior pharynx on the right is a large, white, mass-like structure) Neck: no JVD Respiratory/Chest: lungs clear (minimal dry rales bases), no respiratory distress, no accessory muscle use Cardiovascular: regular rate, rhythm, no gallop, no murmur Abdomen: normal bowel sounds, soft, no organomegaly, + distended (mild) Extremities: no pedal edema Neurologic/Psychiatric: alert, + disoriented Comments: rectal - copious brown stool in vault, no masses vulva - erythematous and irritated with modest foul-smelling discharge Laboratory Results Last 24 Hours Test 12/29/16 06:28 White Blood Count 12.87 K/uL Red Blood Count 4.13 M/uL Hemoglobin 11.5 g/dL Hematocrit 35.2 % Mean Corpuscular Volume 85.2 fL Mean Corpuscular Hemoglobin 27.8 pg Mean Corpuscular Hemoglobin Concent 32.7 g/dl Platelet Count 209 K/uL Mean Platelet Volume 9.5 fL Neutrophils (%) (Auto) 77.9 % Lymphocytes (%) (Auto) 11.7 % Monocytes (%) (Auto) 9.2 % Eosinophils (%) (Auto) 0.5 % Basophils (%) (Auto) 0.2 % Neutrophils # (Auto) 10.04 K/uL Lymphocytes # (Auto) 1.50 K/uL Monocytes # (Auto) 1.18 K/uL Eosinophils # (Auto) 0.07 K/uL Basophils # (Auto) 0.02 K/uL RDW Standard Deviation 40.2 fL RDW Coefficient of Variation 12.9 % Immature Granulocyte % (Auto) 0.5 % Immature Granulocyte # (Auto) 0.06 K/uL 25-Hydroxy Vitamin D Total 23.8 ng/ml Assessment and Plan 86yo female - 1. numerous facial fractures, right-sided orbital fracture, sinus fractures - seen by ophtho, stable with nothing to do from optical standpoint on augmentin prophylactically to avoid sins infection pain control 2. right distal radius/ulna fracture - await orthopedic consultation splint in place 3. mild dehydration - start IVF 4. vaginitis - 12/21/16 vaginal culture with strep augmentin for #1 will cover such 5. h/o lichen planus - previously used triamcinolone ointment BID to affected areas on vulva today, on exam, there was considerable erythema and foul-smell but no lichen planus that I could see 6. HTN - controlled 7. CKD stage 3 - creatinine stable 8. leukocytosis - improving; suspect 2nd to stress of fall 9. DVT proph - heparin 10. confusion - baseline dementia ? encephalopathy 2nd to fall/head injury? other? supportive care, follow 11. abdominal distension - suspect 2nd to constipation given rectal exam findings; miralax, dulcolax suppository 12. FEN - NS hydration, repeat BMP in am 13. PT, OT both suggest she will need rehab following this admission In my clinical judgment this beneficiary meets acute admission criteria, established by [facility], that includes being hospitalized through two midnights. Continued [facility] stay due to: inadequate po fluid intake, inadequate oral pain control, ambulation difficulties, multiple IV medications needed Discharge planning: uncertain
[2016-12-30 06:46] VITALS: BP 162/71; PULSE 75; TEMP 36.5; O2SAT 94
[2016-12-30 08:49] LABS: BASO % 0.2 %; BASO ABS # 0.02 K/uL (0-0.2); COMPLETE YES; EOS % 0.8 %; HEMATOCRIT 35.9 % (37-47); IG% 0.3 %; LYMPH % 14.8 %; LYMPH ABS # 1.75 K/uL (1.2-3.4); MEAN CELL VOLUME 85.3 fL (80-100); MEAN CORPUSCULAR HEMOGLOBIN 27.8 pg (25-34); MEAN CORPUSCULAR HGB CONC 32.6 g/dl (32-36); MEAN PLATELET VOLUME 9.6 fL (7.4-10.4); MONO % 8.7 %; NEUT % 75.2 %; PLATELET COUNT 221 K/uL (130-400); RED BLOOD COUNT 4.21 M/uL (4.2-5.4); WHITE BLOOD COUNT 11.79 K/uL (4.8-10.8)
[2016-12-30] MEDS: AMLODIPINE BESYLATE 5 MG TAB PO SCH (08:54)
[2016-12-30] MEDS: LISINOPRIL 20 MG TAB PO SCH (08:54)
[2016-12-30] MEDS: METOPROLOL SUCC 50MG EXT REL TAB PO SCH (08:54)
[2016-12-30] MEDS: AMOXICILLIN/CLAVULANATE TAB 875 MG TAB PO SCH ×2 (08:55→15:30)
[2016-12-30] MEDS: DOCUSATE SODIUM 100 MG CAP PO SCH ×2 (08:55→20:00)
[2016-12-30] MEDS: CHOLECALCIFEROL 1000 INTER.UNIT TAB PO SCH (08:56)
[2016-12-30] MEDS: POLYETHYLENE (MIRALAX) 17 GM PACK PO SCH (08:56)
[2016-12-30] MEDS: HEPARIN SOD 5000 UNIT/0.5 ML CARP SQ SCH ×2 (09:04→20:47)
[2016-12-30 09:22] LABS: BUN/CREATININE RATIO 31.1 (10-20); CALCIUM 8.7 mg/dl (8.5-10.1); CREATININE 0.76 mg/dl (0.60-1.20); MAGNESIUM 2.1 mg/dl (1.8-2.4); POTASSIUM 3.9 mmol/L (3.5-5.1)
[2016-12-30] MEDS: MoRPHine SULFATE 4 MG/ML 1 ML CARP\\VIAL IV PRN ×2 (09:58→20:00)
[2016-12-30] MEDS ORDERED: NURSING VERBAL MED ORDER SCH (10:15)
[2016-12-30] MEDS ORDERED: BUPIVACAINE 0.5 % 5 MG/1 ML PF 10ML VIAL INFIL ONE (10:30)
[2016-12-30] MEDS ORDERED: NURSING VERBAL MED ORDER ONE (10:30)
--- NOTE | 2016-12-30 11:37 | DIAGNOSTIC IMAGING REPORT ---
RIGHT WRIST 2 VIEW CLINICAL HISTORY: 86 years-old Female presenting with POST REDUCTION Right. TECHNIQUE: Frontal, oblique, and lateral views of the right wrist were obtained. COMPARISON: 12/28/2016. FINDINGS: Fiberglas splint projects over the right wrist partially obscuring underlying osseous detail. Again demonstrated is the distal radial metaphysis fracture with apparent slight decreased apex volar angulation. 3 mm of cortical discontinuity along the dorsal aspect with evidence of impaction again noted. Previously seen ulnar styloid fracture not as well appreciated on the current radiographs. IMPRESSION: Decreased apex volar angulation across the impacted and minimally displaced distal radial metaphysis fracture (Colles' fracture). Electronically signed by: Richard Nicole M.D. 12/30/2016 11:35 AM Dictated Date/Time: 12/30/2016 11:33 AM
--- NOTE | 2016-12-30 12:10 | Orthopedic Consultation ---
Orthopedic Consultation Date of Consultation: Dec 30, 2016. Attending Physician: Reece Childers MD Reason for Consultation: Right wrist fx History of Present Illness 86 yo female who tripped and fell onto right side of face/body/arm. C/O pain in right wrist, no neurologic symptoms Past Medical/Surgical History Medical Problems: (1) Fracture of distal radius and ulna Status: Acute (2) Multiple facial fractures Status: Acute Family History Cancer Diabetes mellitus Hypertension Social History Smoking Status: Never Smoker Marital Status: Housing Status: lives alone, unknown Occupation Status: retired Allergies Coded Allergies: No Known Allergies (Verified , 10/27/13) Home Medications Scheduled Amlodipine (Norvasc), 5 MG PO QAM Lisinopril (Prinivil), 20 MG PO DAILY Metoprolol Succinate (Toprol Xl), 50 MG PO DAILY Simvastatin (Zocor), 40 MG PO HS Triamcinolone Acetonide (Topic (Triderm), 1 APPLN TOP BID Scheduled PRN Docusate Sodium (Docusate Sodium), 100 MG PO DAILY PRN for Constipation Current Inpatient Medications Current Inpatient Medications Medications (Trade) Dose Ordered Sig/Abdi Route Start Time Stop Time Status Last Admin Dose Admin Acetaminophen (Tylenol Tab) 650 mg Q4H PRN PO 12/28/16 16:30 01/27/17 16:29 Al Hydrox/Mg Hydrox/Simethicone (Maalox Max Susp) 15 ml Q4H PRN PO 12/28/16 16:30 01/27/17 16:29 Magnesium Hydroxide (Milk Of Magnesia Susp) 30 ml Q6H PRN PO 12/28/16 16:30 01/27/17 16:29 Ondansetron HCl (Zofran Inj) 4 mg Q6H PRN IV 12/28/16 16:30 01/27/17 16:29 12/29/16 22:25 4 MG Heparin Sodium (Porcine) (Heparin Sq 5000 Unit/0.5ml) 5,000 unit Q12H SQ 12/28/16 21:00 01/27/17 20:59 12/30/16 09:04 5,000 UNIT Amoxicillin/ Clavulanate Potassium (Augmentin Tab) 875 mg BIDM PO 12/28/16 18:15 01/07/17 18:14 12/30/16 08:55 875 MG Amlodipine Besylate (Norvasc Tab) 5 mg QAM PO 12/29/16 09:00 01/28/17 08:59 12/30/16 08:54 5 MG Docusate Sodium (coLACE CAP) 100 mg DAILY PRN PO 12/28/16 16:30 01/27/17 16:29 Lisinopril (Zestril Tab) 20 mg DAILY PO 12/29/16 09:00 01/28/17 08:59 12/30/16 08:54 20 MG Metoprolol Succinate (Toprol Xl Tab) 50 mg DAILY PO 12/29/16 09:00 01/28/17 08:59 12/30/16 08:54 50 MG Simvastatin (Zocor Tab) 40 mg HS PO 12/28/16 21:00 01/27/17 20:59 12/28/16 21:15 40 MG Miscellaneous (Iv Fluids Completed) 1 ea PRN PRN N/A 12/28/16 17:00 12/28/17 16:59 Oxycodone/ Acetaminophen (Percocet 5-325mg Tab) 1 tab Q4H PRN PO 12/28/16 20:30 01/11/17 20:29 Morphine Sulfate (MoRPHine SULFATE INJ) 4 mg Q4 PRN IV 12/28/16 20:30 01/11/17 20:29 12/30/16 09:58 4 MG Polyethylene (Miralax Powder Packet) 17 gm DAILY PO 12/30/16 09:00 01/27/17 16:29 12/30/16 08:56 17 GM Docusate Sodium (coLACE CAP) 100 mg BID PO 12/29/16 21:00 01/28/17 20:59 12/30/16 08:55 100 MG Cholecalciferol (Vitamin D Tab) 2,000 inter.unit QAM PO 12/30/16 09:00 01/29/17 08:59 12/30/16 08:56 2,000 INTER.UNIT Physical Exam Date Time Temp Pulse Resp B/P (MAP) Pulse Ox O2 Delivery O2 Flow Rate FiO2 12/30/16 08:00 Room Air 12/30/16 06:46 36.5 75 18 162/71 (101) 94 Room Air 12/30/16 00:31 Room Air 12/30/16 00:18 36.6 74 16 149/73 (98) 93 Room Air 12/29/16 15:30 95 Room Air 12/29/16 15:01 36.5 76 18 150/75 (100) 95 Room Air Head: + pertinent finding (signifcant swlling and bruising over R eye) Neck: supple Respiratory/Chest: chest non-tender Cardiovascular: regular rate, rhythm Extremities/Musculoskelatal: + pertinent finding (TTP R DR, 2+ rp, lt sens/ motor fxn intact, slight swelling dorsally, no open wounds) Laboratory Results Last 24 Hours Test 12/30/16 08:30 White Blood Count 11.79 K/uL Red Blood Count 4.21 M/uL Hemoglobin 11.7 g/dL Hematocrit 35.9 % Mean Corpuscular Volume 85.3 fL Mean Corpuscular Hemoglobin 27.8 pg Mean Corpuscular Hemoglobin Concent 32.6 g/dl Platelet Count 221 K/uL Mean Platelet Volume 9.6 fL Neutrophils (%) (Auto) 75.2 % Lymphocytes (%) (Auto) 14.8 % Monocytes (%) (Auto) 8.7 % Eosinophils (%) (Auto) 0.8 % Basophils (%) (Auto) 0.2 % Neutrophils # (Auto) 8.86 K/uL Lymphocytes # (Auto) 1.75 K/uL Monocytes # (Auto) 1.02 K/uL Eosinophils # (Auto) 0.10 K/uL Basophils # (Auto) 0.02 K/uL RDW Standard Deviation 40.4 fL RDW Coefficient of Variation 13.0 % Immature Granulocyte % (Auto) 0.3 % Immature Granulocyte # (Auto) 0.04 K/uL Sodium Level 137 mmol/L Potassium Level 3.9 mmol/L Chloride Level 107 mmol/L Carbon Dioxide Level 23 mmol/L Anion Gap 7.0 mmol/L Blood Urea Nitrogen 24 mg/dl Creatinine 0.76 mg/dl Est Creatinine Clear Calc Drug Dose 42.1 ml/min Estimated GFR () 81.2 Estimated GFR (Non- 70.0 BUN/Creatinine Ratio 31.1 Random Glucose 108 mg/dl Calcium Level 8.7 mg/dl Magnesium Level 2.1 mg/dl Assessment & Plan R distal Radius fx She sustained a fall onto the right side. X-rays demonstrate evidence of prior distal radius as well as distal ulnar fractures. She has some dorsal angulation to her fracture. We performed a hematoma block and performed a closed reduction of the right distal radius. There is some mild residual dorsal translation but angulation is resolved. This should heal fine with nonoperative measures. She is to stay in the sugar tong splint and be nonweightbearing on the right upper wrist. We will check surveillance x-rays in about a week to ensure she is maintaining reduction.
--- NOTE | 2016-12-30 12:14 | [facility] Operative Report ---
Operative Report Operative Date Dec 30, 2016. Pre-Operative Diagnosis Angulated right distal radius fracture Post-Operative Diagnosis Same Procedure(s) Performed Closed reduction right distal radius fracture Surgeon Mynor [employer] Support Surgeon(s) blane tejeda pa-c Estimated Blood Loss none Findings As above Drains none Anesthesia hematoma block Complication(s) None Disposition bedside Indications 86-year-old female who sustained a fall onto the outstretched right upper extremity. She is grossly had a fracture on the side. She has some dorsal angulation to the distal radius fracture. Description of Procedure The patient was identified and the laterality was confirmed. Under sterile conditions I performed a hematoma block with 10 mL of Marcaine. I then performed a closed reduction maneuver applying distraction and then reversing the deforming forces. A well-padded sugar tong splint was placed. Postreduction x-rays were obtained and demonstrated adequate latter day of alignment. The patient was neurovascularly intact after the procedure. I attest to the content of the Intraoperative Record and any orders documented therein. Any exceptions are noted below.
[2016-12-30 15:06] VITALS: BP 145/74; PULSE 67; TEMP 36.6; O2SAT 95
[2016-12-30 16:30] VITALS: O2SAT 95
--- NOTE | 2016-12-30 17:05 | PROGRESS NOTE ---
DATE: 12/30/2016 HISTORY OF PRESENT ILLNESS: Mrs. Foley is a very pleasant 86-year-old white female with a history of hypertension, chronic kidney disease, type 2 diabetes mellitus, and osteoarthritis, who sustained a fall on 12/28/2016, resulting in a displaced fracture of the distal right radius and ulna and multiple facial fractures. She underwent closed reduction of the right distal radius earlier today and tolerated that procedure well. She is currently being seen in room 351, bed 2. She offers no complaints at this time. Her pain is well controlled. She is frustrated by the fact that she fell and injured herself. She denies any chest pain, heaviness, tightness, or pressure. No shortness of breath, dyspnea on exertion, orthopnea or PND. No palpitations, syncope or near syncope. She does not have any neck or hand pain. MEDICATIONS: 1. MiraLax 17 grams daily. 2. Vitamin D 2000 international units daily. 3. Colace 100 mg b.i.d. 4. Norvasc 5 mg daily. 5. Lisinopril 20 mg daily. 6. Toprol-XL 50 mg daily. 7. Heparin 5000 units subcutaneous injection q. 12 hours. 8. Simvastatin 40 mg daily. 9. Percocet 5/325, 1 or 2 tablets every 4 hours as needed for moderate to sever pain. 10. Morphine sulfate 4 mg IV q. 4 hours p.r.n. for severe breakthrough pain. 11. Augmentin 875 b.i.d. 12. Tylenol p.r.n. 13. Maalox Max p.r.n. 14. Milk of magnesia p.r.n. 15. Zofran p.r.n. ALLERGIES: NKDA. PHYSICAL EXAMINATION: VITAL SIGNS: Temperature is 36.6 degrees Celsius, pulse 67 and regular, respiratory rate is 14 and unlabored, blood pressure is 145/74, and SpO2 is 95% on room air. GENERAL: The patient is in no acute distress. HEENT: Right facial ecchymoses are noted. Right conjunctival hemorrhage also noted. EOMs are intact. Sclerae anicteric. Mucous membranes moist. NECK: Without JVD. CHEST AND LUNGS: Clear to auscultation throughout all lung stanley. No wheezes, rales or rhonchi. CARDIOVASCULAR: S1 and S2 are regular without obvious murmur, gallop or rub. ABDOMEN: Benign. EXTREMITIES: Without clubbing, cyanosis or edema. Calves are soft and nontender. Right lower arm is in a splint. NEUROLOGIC: The patient is awake, alert and oriented. Pleasant and cooperative. Answers questions appropriately. Speech is clear. Follows commands. Gait pattern not assessed. LABORATORIES: White blood cell count is 11.79, hemoglobin 11.7 g/dL, hematocrit 35.9%, and platelet count 221,000. Sodium is 137 mmol/L, potassium 3.9 mmol/L, BUN 24 mg/dL and creatinine 0.76 mg/dL. ASSESSMENT: 1. Fall, which resulted in a displaced distal right radial and ulnar fracture, status post closed reduction of right distal radius earlier today. 2. Dehydration, renal function stable. 3. Hypertension. 4. Chronic kidney disease. 5. Type 2 diabetes mellitus. 6. Dyslipidemia, on local company intermodal truck driver statin. 7. Mild anemia, probably secondary to recent injuries and hemodilution with IV fluids. PLAN: 1. Ongoing pain management as per orthopedics. 2. The patient tolerated closed reduction of right distal radial fracture earlier today. 3. Continue amlodipine 5 mg daily. 4. Continue Zestril 20 mg daily. 5. Continue Toprol-XL 50 mg daily. 6. Zocor 40 mg each evening. 7. Continue subcutaneous heparin for DVT prophylaxis along with other measures. 8. Monitor daily laboratories. 9. We will continue to follow along while hospitalized. Attending Attestation: I agree with the maher components of HOLLY Chapman's progress note documentation. Reece MORELAND
[2016-12-30] MEDS: SIMVASTATIN 40 MG TAB PO SCH (20:04)
[2016-12-31 00:12] VITALS: BP 155/69; PULSE 67; TEMP 36.5; O2SAT 93
[2016-12-31 07:08] VITALS: BP 135/74; PULSE 68; TEMP 36.2; O2SAT 95
[2016-12-31 07:23] LABS: HEMATOCRIT 34.9 % (37-47); MEAN CELL VOLUME 86.4 fL (80-100); MEAN CORPUSCULAR HEMOGLOBIN 27.5 pg (25-34); MEAN CORPUSCULAR HGB CONC 31.8 g/dl (32-36); MEAN PLATELET VOLUME 10.1 fL (7.4-10.4); PLATELET COUNT 223 K/uL (130-400); RED BLOOD COUNT 4.04 M/uL (4.2-5.4); WHITE BLOOD COUNT 11.07 K/uL (4.8-10.8)
[2016-12-31] MEDS: METOPROLOL SUCC 50MG EXT REL TAB PO SCH (08:57)
[2016-12-31] MEDS: AMOXICILLIN/CLAVULANATE TAB 875 MG TAB PO SCH ×3 (08:57→19:28)
[2016-12-31] MEDS: DOCUSATE SODIUM 100 MG CAP PO SCH ×2 (08:58→20:30)
[2016-12-31] MEDS: LISINOPRIL 20 MG TAB PO SCH (08:58)
[2016-12-31] MEDS: CHOLECALCIFEROL 1000 INTER.UNIT TAB PO SCH (08:58)
[2016-12-31] MEDS: AMLODIPINE BESYLATE 5 MG TAB PO SCH (08:58)
[2016-12-31] MEDS: POLYETHYLENE (MIRALAX) 17 GM PACK PO SCH (08:59)
[2016-12-31] MEDS: HEPARIN SOD 5000 UNIT/0.5 ML CARP SQ SCH ×2 (09:04→20:30)
[2016-12-31 15:05] VITALS: BP 113/55; PULSE 73; TEMP 36.2; O2SAT 96
[2016-12-31 16:30] VITALS: O2SAT 96
--- NOTE | 2016-12-31 17:23 | Progress Note ---
Subjective Date of Service: Dec 31, 2016. Subjective this pt is pleasantly confused, has facial swelling and bruising, right arm is in a splint Problem List Medical Problems: (1) Fracture of distal radius and ulna Status: Acute (2) Multiple facial fractures Status: Acute Review of Systems Constitutional: No fever, No chills, No weakness Respiratory: No cough, No sputum, No wheezing, No shortness of breath Cardiac: No chest pain, No edema Abdomen: No pain, No nausea, No vomiting, No diarrhea Neurologic: No memory loss, No weakness Psychiatric: No depression symptoms, No anhedonism Objective Vital Signs Date Time Temp Pulse Resp B/P (MAP) Pulse Ox O2 Delivery O2 Flow Rate FiO2 12/31/16 07:35 Room Air 12/31/16 07:08 36.2 68 17 135/74 (94) 95 Room Air 12/31/16 00:16 Room Air 12/31/16 00:12 36.5 67 17 155/69 (97) 93 Room Air 12/30/16 16:30 95 Room Air 12/30/16 15:06 36.6 67 18 145/74 (97) 95 Room Air Physical Exam General Appearance: WD/WN, + mild distress Eyes: PERRL, + pertinent finding (facial swelling ecchymosis and conjunctival hemorrhage) Respiratory/Chest: chest non-tender, lungs clear, normal breath sounds Cardiovascular: regular rate, rhythm, no murmur Abdomen: normal bowel sounds, non tender, soft Extremities: + pertinent finding (has splint) Laboratory Results Last 24 Hours Test 12/31/16 05:55 White Blood Count 11.07 K/uL Red Blood Count 4.04 M/uL Hemoglobin 11.1 g/dL Hematocrit 34.9 % Mean Corpuscular Volume 86.4 fL Mean Corpuscular Hemoglobin 27.5 pg Mean Corpuscular Hemoglobin Concent 31.8 g/dl RDW Standard Deviation 41.8 fL RDW Coefficient of Variation 13.1 % Platelet Count 223 K/uL Mean Platelet Volume 10.1 fL Assessment and Plan Fall, which resulted in a displaced distal right radial and ulnar fracture, status post closed reduction of right distal radius Hypertension. metoprolol,amlodipine, zestril Chronic kidney disease., ivf and hold nephrotoxins Type 2 diabetes mellitus, ssi Mild anemia, follow for post op changes subcutaneous heparin for DVT prophylaxis will need placement Continued [facility] stay due to: inadequate po fluid intake, inadequate oral pain control, ambulation difficulties, multiple IV medications needed Discharge planning: uncertain
[2016-12-31] MEDS: MoRPHine SULFATE 4 MG/ML 1 ML CARP\\VIAL IV PRN (19:51)
[2016-12-31] MEDS ORDERED: NURSING VERBAL MED ORDER ONE (20:15)
[2016-12-31] MEDS ORDERED: HALOPERIDOL LACTATE 5 MG/ML 1 ML VIAL IM ONE (20:15)
[2016-12-31] MEDS: SIMVASTATIN 40 MG TAB PO SCH (20:30)
[2016-12-31 22:57] VITALS: BP 152/69; PULSE 76; TEMP 36.3; O2SAT 95
[2017-01-01 07:15] VITALS: BP 158/74; PULSE 81; TEMP 36.3; O2SAT 96
[2017-01-01] MEDS: AMOXICILLIN/CLAVULANATE TAB 875 MG TAB PO SCH ×2 (08:30→17:45)
[2017-01-01] MEDS: AMLODIPINE BESYLATE 5 MG TAB PO SCH (12:48)
[2017-01-01] MEDS: DOCUSATE SODIUM 100 MG CAP PO SCH ×2 (12:48→20:42)
[2017-01-01] MEDS: METOPROLOL SUCC 50MG EXT REL TAB PO SCH (12:48)
[2017-01-01] MEDS: POLYETHYLENE (MIRALAX) 17 GM PACK PO SCH (12:48)
[2017-01-01] MEDS: LISINOPRIL 20 MG TAB PO SCH (12:49)
[2017-01-01] MEDS: CHOLECALCIFEROL 1000 INTER.UNIT TAB PO SCH (12:49)
[2017-01-01] MEDS: HEPARIN SOD 5000 UNIT/0.5 ML CARP SQ SCH ×2 (12:49→20:37)
--- NOTE | 2017-01-01 13:37 | Orthopedic Progress Note ---
Orthopedic Progress Note Date of Service Jan 01, 2017. Subjective Additional Notes: Pt resting comfortably in chair. Appears comfortable. Objective Splint intact, Fingers pink and warm. Cap refill less than 2 seconds. Date Time Temp Pulse Resp B/P (MAP) Pulse Ox O2 Delivery O2 Flow Rate FiO2 01/01/17 07:35 Room Air 01/01/17 07:15 36.3 81 16 158/74 (102) 96 Room Air 12/31/16 23:15 Room Air 12/31/16 22:57 36.3 76 16 152/69 (96) 95 Room Air 12/31/16 16:30 96 Room Air 12/31/16 15:05 36.2 73 17 113/55 (74) 96 Room Air Assessment & Plan Assessment: C/R Right Wrist Fx Plan: Continue Splint at this time. Ortho will sign off at this time NWB on right wrist/forearm
--- NOTE | 2017-01-01 13:41 | Consultant Recommendations ---
Auxiliary Engineer Recommendations Date of Service Jan 01, 2017. Auxiliary Engineer Recommendations Keep splint clean and dry. May shower with waterproof covering over the splint. If splint becomes soaked, please call the office. [phone] No weight to be placed on the Right wrist or forearm. Move fingers regularly Keep the wrist elevated on 1 or 2 pillows when at rest. If the fingers become purplish, are numb or tingling; If you experience and increase in pain, please call the office. Follow up with Dr Lowe in 7-10 days. Call for appointment. [phone]
[2017-01-01 15:06] VITALS: BP 149/85; PULSE 81; TEMP 35.9; O2SAT 95
--- NOTE | 2017-01-01 15:36 | DIAGNOSTIC IMAGING REPORT ---
CT HEAD WITHOUT CONTRAST (CT) CLINICAL HISTORY: Head trauma. Head pain. COMPARISON STUDY: A 2417 TECHNIQUE: Axial CT of the brain is performed from the vertex to the skull base. IV contrast was not administered for this examination. A dose lowering technique was utilized adhering to the principles of ALARA. CT DOSE: 614.27 mGy.cm FINDINGS: No intra or extra-axial mass lesions are visualized. There is no CT evidence of acute cortical infarction. There is no evidence of midline shift. There is no acute hemorrhage. No calvarial fractures are visualized. There are patchy white matter hypodensities likely on a small vessel basis. There is no evidence of pathologic ventricular dilatation. There is opacification the right maxilla sinus. Multiple right maxilla sinus fractures are visualized. There is a fracture the right lateral orbital wall. There is a nasal bone fracture on the right. There is a right zygomatic arch fracture. There is a suspected right orbital floor fracture. IMPRESSION: 1. Multiple right-sided facial fractures. These were described in a prior facial CT scan dated 12/28/2016 2. Opacification of the right maxillary sinus 3. No acute intracranial findings. No evidence of acute hemorrhage. Electronically signed by: Arturo Reyes M.D. 01/01/2017 3:34 PM Dictated Date/Time: 01/01/2017 3:32 PM
[2017-01-01] MEDS: SODIUM CHLORIDE 0.9% 1000ML 1,000 ML IV SCH (18:20)
--- NOTE | 2017-01-01 18:58 | Progress Note ---
Subjective Date of Service: Jan 01, 2017. Subjective Patient received Haldol last night and today has been persistently sedate I evaluated the patient at the bedside with her family in the room she is able to be awakened and swat at me but fell back asleep easily, she offers no focal loss of spontaneous movement, has persistent facial ecchymosis and right arm splint Problem List Medical Problems: (1) Fracture of distal radius and ulna Status: Acute (2) Multiple facial fractures Status: Acute Review of Systems Constitutional: + weakness, + problem reported (patient's lethargy prevents full review of systems), No fever, No chills Objective Vital Signs Date Time Temp Pulse Resp B/P (MAP) Pulse Ox O2 Delivery O2 Flow Rate FiO2 01/01/17 15:06 35.9 81 16 149/85 (106) 95 Room Air 01/01/17 07:35 Room Air 01/01/17 07:15 36.3 81 16 158/74 (102) 96 Room Air 12/31/16 23:15 Room Air 12/31/16 22:57 36.3 76 16 152/69 (96) 95 Room Air Physical Exam General Appearance: WD/WN, + pertinent finding (patient to be awake and she does protect airway she is resistant to taking oral intake or medications) Eyes: + pertinent finding (patient resisted my evaluation of her pupils) ENT: + pertinent finding (patient resistant or looks inspection and gag reflex testing) Respiratory/Chest: chest non-tender, lungs clear, + pertinent finding (her breathing appears unlabored) Cardiovascular: regular rate, rhythm, no murmur Abdomen: normal bowel sounds, non tender, soft Neurologic/Psychiatric: + pertinent finding (she awakens she does not want be bothered she has recognized her family earlier) Assessment and Plan Fall, which resulted in a displaced distal right radial and ulnar fracture, status post closed reduction of right distal radius Sundowning behavior with intramuscular Haldol given with persistent sedative affects, stat CT scan of the head did not show any subdural or subarachnoid bleeding or any new ischemic change this is likely medication effect will continue supportive care including low flow IV fluid until this resolves Hypertension. metoprolol,amlodipine, zestril Chronic kidney disease., hold nephrotoxins Type 2 diabetes mellitus, ssi, watch for low blood glucose with poor by mouth intake given sedation Mild anemia, this is acute blood loss anemia from fracture and injury subcutaneous heparin for DVT prophylaxis will need placement, family is looking for [facility] and/or snf facility Continued [facility] stay due to: inadequate po fluid intake, inadequate oral pain control, ambulation difficulties, multiple IV medications needed Discharge planning: uncertain
[2017-01-01] MEDS: SIMVASTATIN 40 MG TAB PO SCH (20:42)
[2017-01-01 22:49] VITALS: BP 130/72; PULSE 67; TEMP 36.4; O2SAT 97
[2017-01-02 07:18] VITALS: BP 144/78; PULSE 76; TEMP 36.5; O2SAT 97
[2017-01-02 08:53] LABS: BASO % 0.2 %; BASO ABS # 0.02 K/uL (0-0.2); COMPLETE YES; EOS % 4.7 %; HEMATOCRIT 37.4 % (37-47); IG% 0.6 %; LYMPH % 24.6 %; LYMPH ABS # 2.48 K/uL (1.2-3.4); MEAN CELL VOLUME 86.6 fL (80-100); MEAN CORPUSCULAR HEMOGLOBIN 27.5 pg (25-34); MEAN CORPUSCULAR HGB CONC 31.8 g/dl (32-36); MEAN PLATELET VOLUME 9.8 fL (7.4-10.4); MONO % 8.2 %; NEUT % 61.7 %; PLATELET COUNT 230 K/uL (130-400); RED BLOOD COUNT 4.32 M/uL (4.2-5.4); WHITE BLOOD COUNT 10.09 K/uL (4.8-10.8)
[2017-01-02] MEDS: CHOLECALCIFEROL 1000 INTER.UNIT TAB PO SCH (09:03)
[2017-01-02] MEDS: AMOXICILLIN/CLAVULANATE TAB 875 MG TAB PO SCH ×2 (09:04→18:17)
[2017-01-02] MEDS: DOCUSATE SODIUM 100 MG CAP PO SCH ×2 (09:04→21:02)
[2017-01-02] MEDS: LISINOPRIL 20 MG TAB PO SCH (09:05)
[2017-01-02] MEDS: AMLODIPINE BESYLATE 5 MG TAB PO SCH (09:05)
[2017-01-02] MEDS: METOPROLOL SUCC 50MG EXT REL TAB PO SCH (09:06)
[2017-01-02] MEDS: POLYETHYLENE (MIRALAX) 17 GM PACK PO SCH (09:07)
[2017-01-02] MEDS: HEPARIN SOD 5000 UNIT/0.5 ML CARP SQ SCH ×2 (09:10→21:06)
[2017-01-02 09:18] LABS: BUN/CREATININE RATIO 27.1 (10-20); CALCIUM 8.8 mg/dl (8.5-10.1); CREATININE 0.66 mg/dl (0.60-1.20); MAGNESIUM 2.2 mg/dl (1.8-2.4); POTASSIUM 3.7 mmol/L (3.5-5.1)
[2017-01-02] MEDS: SODIUM CHLORIDE 0.9% 1000ML 1,000 ML IV SCH (13:24)
[2017-01-02 15:08] VITALS: BP 132/70; PULSE 82; TEMP 36.6; O2SAT 96
--- NOTE | 2017-01-02 18:57 | Progress Note ---
Subjective Date of Service: Jan 02, 2017. Subjective Patient is returned to her usual pleasant self mildly confused has no focal complaints or problems, decision for disposition is still being under had with the family Problem List Medical Problems: (1) Fracture of distal radius and ulna Status: Acute (2) Multiple facial fractures Status: Acute Review of Systems Constitutional: + problem reported (review of systems is inaccurate due to the level of dementia this patient displays she claims to be in no pain) Objective Vital Signs Date Time Temp Pulse Resp B/P (MAP) Pulse Ox O2 Delivery O2 Flow Rate FiO2 01/02/17 07:18 36.5 76 15 144/78 (100) 97 Room Air 01/01/17 22:49 36.4 67 16 130/72 (91) 97 Room Air 01/01/17 19:40 Room Air 01/01/17 15:06 35.9 81 16 149/85 (106) 95 Room Air Physical Exam General Appearance: WD/WN, no apparent distress Eyes: PERRL (does have a right subconjunctival hemorrhage), EOMI Neck: supple, no JVD Respiratory/Chest: chest non-tender, lungs clear, normal breath sounds Cardiovascular: regular rate, rhythm, no murmur Abdomen: normal bowel sounds, non tender, soft, + pertinent finding (right hand is splinted but fingers are mobile capillary refill and sensation) Neurologic/Psychiatric: alert, + disoriented Assessment and Plan Fall, which resulted in a displaced distal right radial and ulnar fracture, status post closed reduction of right distal radius Sundowning behavior with intramuscular Haldol given with persistent sedative affects now resolved, stat CT scan of the head did not show any subdural or subarachnoid bleeding or any new ischemic change patient is back to her baseline pleasantly confused Hypertension. Continues to be controlled with metoprolol,amlodipine, zestril Chronic kidney disease., Continue to hold nephrotoxins Type 2 diabetes mellitus, ssi, she is back to eating food Mild anemia, this is acute blood loss anemia from fracture and injury subcutaneous heparin for DVT prophylaxis family strongly considering for [facility] to improve function then transition to [facility] facility Continued [facility] stay due to: inadequate po fluid intake, inadequate oral pain control, ambulation difficulties, multiple IV medications needed Discharge planning: uncertain
[2017-01-02] MEDS: SIMVASTATIN 40 MG TAB PO SCH (21:02)
[2017-01-02 23:11] VITALS: BP 153/82; PULSE 70; TEMP 36.6; O2SAT 95
[2017-01-03 06:51] LABS: HEMATOCRIT 36.8 % (37-47); MEAN CELL VOLUME 86.6 fL (80-100); MEAN CORPUSCULAR HEMOGLOBIN 27.5 pg (25-34); MEAN CORPUSCULAR HGB CONC 31.8 g/dl (32-36); MEAN PLATELET VOLUME 9.8 fL (7.4-10.4); PLATELET COUNT 242 K/uL (130-400); RED BLOOD COUNT 4.25 M/uL (4.2-5.4); WHITE BLOOD COUNT 11.15 K/uL (4.8-10.8)
[2017-01-03 07:12] VITALS: BP 169/75; PULSE 76; TEMP 36.8; O2SAT 95
[2017-01-03] MEDS: DOCUSATE SODIUM 100 MG CAP PO SCH (08:41)
[2017-01-03] MEDS: METOPROLOL SUCC 50MG EXT REL TAB PO SCH (08:41)
[2017-01-03] MEDS: AMOXICILLIN/CLAVULANATE TAB 875 MG TAB PO SCH ×2 (08:41→18:21)
[2017-01-03] MEDS: AMLODIPINE BESYLATE 5 MG TAB PO SCH (08:41)
[2017-01-03] MEDS: LISINOPRIL 20 MG TAB PO SCH (08:41)
[2017-01-03] MEDS: POLYETHYLENE (MIRALAX) 17 GM PACK PO SCH (08:41)
[2017-01-03] MEDS: CHOLECALCIFEROL 1000 INTER.UNIT TAB PO SCH (08:42)
[2017-01-03] MEDS: HEPARIN SOD 5000 UNIT/0.5 ML CARP SQ SCH (08:45)
[2017-01-03 10:00] VITALS: BP 120/73; PULSE 68; TEMP 36.7; O2SAT 97
[2017-01-03 11:48] VITALS: BP 120/73; PULSE 68; TEMP 36.7; O2SAT 97
[2017-01-03] MEDS ORDERED: AMOX1TAB43 PO (14:37)
[2017-01-03] MEDS ORDERED: MRLP17 PO (14:37)
[2017-01-03] MEDS ORDERED: OXYC-57 PO (14:37)
[2017-01-03] MEDS ORDERED: CLC100 PO (14:37)
--- NOTE | 2017-01-03 14:40 | Discharge Instructions ---
Discharge Instructions Date of Service Jan 03, 2017. Admission Reason for Admission: FALL Discharge Discharge Diagnosis / Problem: facial contusion, right wrist fracture Discharge Goals Goal(s): Diagnostic testing, Therapeutic intervention Activity Recommendations Activity Level: Assistance Required Therapies: Physical Therapy, Occupational Therapy Lifting Limitations: no more than 5 pounds . Additional Information Patient informed of condition: Yes Advance Directives: Yes DNR: No Level of Care: Acute Rehab Communicable Disease: No Prognosis: Stable Martinez Catheter: No Instructions / Follow-Up Instructions / Follow-Up Fall, which resulted in a displaced distal right radial and ulnar fracture, status post closed reduction of right distal radius Sundowning behavior with intramuscular Haldol given 12/31- with persistent sedative affects now resolved, stat CT scan of the head did not show any subdural or subarachnoid bleeding or any new ischemic change patient is back to her baseline pleasantly confused facial contusion with mucosal breech and concern for sinusitis, complete augmentin Hypertension. Continues to be controlled with metoprolol,amlodipine, zestril Chronic kidney disease. stage 3 Type 2 diabetes mellitus, diabetic diet Mild anemia, this is acute blood loss anemia from fracture and injury Current Hospital Diet Patient's current hospital diet: Regular Diet Discharge Diet Recommended Diet: Regular Diet Procedures Procedures Performed: Closed reduction right distal radius fracture Pending Studies Studies pending at discharge: no Medical Emergencies . Who to Call and When: Medical Emergencies: If at any time you feel your situation is an emergency, please call 911 immediately. . Non-Emergent Contact Non-Emergency issues call your: Specialist (orhtopaedics) Call Non-Emergent contact if: temperature is above 101, your pain is unusual for you . . "Provider Documentation" section prepared by Garcia Santiago. . Railway Engineer Recommendations Railway Engineer Recommendations: Keep splint clean and dry. May shower with waterproof covering over the splint. If splint becomes soaked, please call the office. [phone] No weight to be placed on the Right wrist or forearm. Move fingers regularly Keep the wrist elevated on 1 or 2 pillows when at rest. If the fingers become purplish, are numb or tingling; If you experience and increase in pain, please call the office. Follow up with Dr Lowe in 7-10 days. Call for appointment. [phone] Core Measure Problem Core Measures: None
--- NOTE | 2017-01-03 14:41 | Discharge Summary ---
Discharge Summary Date of Service Jan 03, 2017. Discharge Summary Admission Date: Dec 28, 2016 at 17:11 Discharge Date: Jan 03, 2017 Discharge Disposition: Rehab Principal Diagnosis: right radial fracture closed reduction facial contusions sundowning behavio Immunizations: Have You Had Influenza Vaccine: No History of Tetanus Vaccine?: No History of Pneumococcal: No History of Hepatitis B Vaccine: No Medication Reconciliation New Medications: Amoxicillin & Pot Clavulanate (Amoxicillin/Clavulanate P) 1 Tab Tab 875 MG PO BIDM, #14 TAB Oxycodone/Acetaminophen 5MG/325MG (Percocet 5MG/325MG) Tab 1 TAB PO Q4H PRN for moderate to severe pain, #20 TAB PAIN Polyethylene (Miralax) 17 Gm Pow 17 GM PO DAILY, #30 DOSE Changed Medications: Docusate Sodium (Docusate Sodium) 100 Mg Cap 100 MG PO BID, #30 DOSE (Changed from: DAILY; Removed Reason) Continued Medications: Amlodipine (Norvasc) 5 Mg Tab 5 MG PO QAM Lisinopril (Prinivil) 20 Mg Tab 20 MG PO DAILY Metoprolol Succinate (Toprol Xl) 50 Mg Tabcr 50 MG PO DAILY Simvastatin (Zocor) 40 Mg Tab 40 MG PO HS Discontinued Medications: Triamcinolone Acetonide (Topic (Triderm) 0.1 % Cre 1 APPLN TOP BID 1% OINTMENT* Discharge Exam Review of Systems: Constitutional: No fever, No chills Respiratory: No cough, No sputum, No wheezing Cardiovascular: No chest pain, No orthopnea Physical Exam: General Appearance: WD/WN, no apparent distress Eyes: + pertinent finding (right subconjunctival hemorrhage) Neck: supple, no JVD Respiratory/Chest: chest non-tender, lungs clear, normal breath sounds Cardiovascular: regular rate, rhythm, no murmur Extremities: + pertinent finding (right arm cast in place good capillary refill and sensation distally) Hospital Course Fall, which resulted in a displaced distal right radial and ulnar fracture, status post closed reduction of right distal radius Sundowning behavior with intramuscular Haldol given 12/31- with persistent sedative affects now resolved, stat CT scan of the head did not show any subdural or subarachnoid bleeding or any new ischemic change patient is back to her baseline pleasantly confused facial contusion with mucosal breech and concern for sinusitis, complete augmentin Hypertension. Continues to be controlled with metoprolol,amlodipine, zestril Chronic kidney disease. stage 3 Type 2 diabetes mellitus, diabetic diet Mild anemia, this is acute blood loss anemia from fracture and injury Total Time Spent: Greater than 30 minutes This includes examination of the patient, discharge planning, medication reconciliation, and communication with other providers. Discharge Instructions Please refer to the electronic Patient Visit Report (Discharge Instructions) for additional information.
[2017-01-03 15:09] VITALS: BP 157/79; PULSE 74; TEMP 36.6; O2SAT 97
== END 2017-01-03 19:38 | DRG 562 ==
LOC: EDBD 13:23 → C.EDA 13:24 → C.MSW 16:25 → ENRESERV 16:44 → OBSVTOIN 17:11
PROVIDERS: ADMIT Family Medicine; ATTEND Internal Medicine
PROC: 0PSHXZZ Reposition Right Radius, External Approach (ICD-10-PCS; principal; 2016-12-30)
DX: S52.501A Unspecified fracture of the lower end of right radius, initial encounter for closed fracture (principal); G93.40 Encephalopathy, unspecified; F05 Delirium due to known physiological condition; D62 Acute posthemorrhagic anemia; S02.19XA Other fracture of base of skull, initial encounter for closed fracture; S02.31XA Fracture of orbital floor, right side, initial encounter for closed fracture; N18.3 Chronic kidney disease, stage 3 (moderate); S52.611A Displaced fracture of right ulna styloid process, initial encounter for closed fracture; I12.9 Hypertensive chronic kidney disease with stage 1 through stage 4 chronic kidney disease, or unspecified chronic kidney disease; M19.90 Unspecified osteoarthritis, unspecified site; W18.39XA Other fall on same level, initial encounter; Y92.480 Sidewalk as the place of occurrence of the external cause; J01.80 Other acute sinusitis; E11.22 Type 2 diabetes mellitus with diabetic chronic kidney disease; E86.0 Dehydration; M81.0 Age-related osteoporosis without current pathological fracture; E78.5 Hyperlipidemia, unspecified; N76.0 Acute vaginitis; B95.5 Unspecified streptococcus as the cause of diseases classified elsewhere; D72.829 Elevated white blood cell count, unspecified; K59.00 Constipation, unspecified; R14.0 Abdominal distension (gaseous); M85.80 Other specified disorders of bone density and structure, unspecified site; Z87.2 Personal history of diseases of the skin and subcutaneous tissue; Z79.899 Other long term (current) drug therapy

== ENCOUNTER → 2017-03-26 | Outpatient (CLI) | payer OTHER ==
[~2017-03-26] MED LIST changes: +AMLO-110 PO; +AMOX1TAB43 PO; +CLC100 PO; -DICL1GEL12 TOP; -GLC/500 PO; +LISI20TA3 PO; +METO-217 PO; -METO50TA16 PO; +MRLP17 PO; +OXYC-57 PO; +SIMV40TA2 PO; -SIMV40TA4 PO; -ULT50X PO
== END | disposition home or self-care (01) ==
LOC: C.MAMM 08:34
PROVIDERS: ATTEND Internal Medicine
DX: S42.309A Unspecified fracture of shaft of humerus, unspecified arm, initial encounter for closed fracture (principal); X58.XXXA Exposure to other specified factors, initial encounter; M81.0 Age-related osteoporosis without current pathological fracture; M85.88 Other specified disorders of bone density and structure, other site

== ENCOUNTER → 2017-04-24 | Outpatient (CLI) | payer OTHER ==
[2017-04-24 08:24] LABS: CHOLESTEROL/HDL RATIO 2.5
[2017-04-24 09:33] LABS: ESTIMATED AVERAGE GLUCOSE 137 mg/dl; HA1C FLAG Normal (Normal)
== END ==
LOC: C.LABCC 08:02
PROVIDERS: ATTEND Internal Medicine
DX: E11.9 Type 2 diabetes mellitus without complications (principal); E78.5 Hyperlipidemia, unspecified

== ENCOUNTER → 2017-05-03 | Outpatient (CLI) | payer OTHER ==
[2017-05-03 08:47] LABS: BASO % 0.2 %; BASO ABS # 0.02 K/uL (0-0.2); COMPLETE YES; EOS % 3.7 %; IG% 0.4 %; LYMPH % 25.8 %; LYMPH ABS # 2.41 K/uL (1.2-3.4); MEAN CELL VOLUME 84.8 fL (80-100); MEAN CORPUSCULAR HEMOGLOBIN 26.9 pg (25-34); MEAN CORPUSCULAR HGB CONC 31.7 g/dl (32-36); MEAN PLATELET VOLUME 9.8 fL (7.4-10.4); MONO % 9.4 %; NEUT % 60.5 %; PLATELET COUNT 299 K/uL (130-400); RED BLOOD COUNT 3.42 M/uL (4.2-5.4); WHITE BLOOD COUNT 9.35 K/uL (4.8-10.8)
[2017-05-03 08:54] LABS: BLOOD UREA NITROGEN 26 mg/dl (7-18); BUN/CREATININE RATIO 32.7 (10-20); CALCIUM 8.4 mg/dl (8.5-10.1); CARBON DIOXIDE 25 mmol/L (21-32); CHLORIDE 105 mmol/L (98-107); GLUCOSE 109 mg/dl (70-99); SODIUM 136 mmol/L (136-145)
[2017-05-03 17:55] LABS: URINE APPEARANCE CLEAR (CLEAR); URINE BILIRUBIN NEG (NEG); URINE COLOR YELLOW; URINE NITRITE NEG (NEG); URINE PH 6.5 (4.5-7.5); URINE SPECIFIC GRAVITY 1.021 (1.000-1.030); UROBILINOGEN NEG (NEG)
[2017-05-03 17:57] LABS: MANUAL MICROSCOPIC REQUIRED? NO; REVIEW REQ? NO
== END ==
LOC: C.LABCC 08:05
PROVIDERS: ATTEND Internal Medicine
DX: R53.83 Other fatigue (principal); R11.10 Vomiting, unspecified; R29.6 Repeated falls

== ENCOUNTER → 2017-05-22 | Outpatient (CLI) | payer OTHER ==
--- NOTE | 2017-05-22 07:22 | DIAGNOSTIC IMAGING REPORT ---
CT OF THE RIGHT HIP WITHOUT CONTRAST CLINICAL HISTORY: Right hip pain following fall. Evaluate for fracture. COMPARISON STUDY: Pelvis radiograph December 28, 2016. FINDINGS: No acute fracture of the proximal right femur is noted. A pessary device is in place. There are healing fractures of the right superior and inferior pubic rami. The superior pubic ramus fracture extends to the symphysis pubis. There is associated lucency and sclerosis with bone formation within the adjacent adductor musculature. There is mild edema within the right abductor musculature. No additional fractures are identified. 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 IMPRESSION: 1. Healing minimally displaced right superior pubic ramus fracture and healing nondisplaced right inferior pubic ramus fracture. These fractures are likely subacute with bone formation/myositis ossificans within the adjacent right adductor musculature. 2. No proximal right femoral fracture. Electronically signed by: Bubba Kellogg M.D. 05/22/2017 7:20 AM Dictated Date/Time: 05/22/2017 7:09 AM
--- NOTE | 2017-05-22 07:42 | DIAGNOSTIC IMAGING REPORT ---
PELVIS NO IV/ORAL CONT (CT) HISTORY: 86 years-old Female RT HIP PAIN R/O FX acute right-sided hip pain status post fall COMPARISON: CT abdomen and pelvis 05/21/2012, right lower extremity CT of same day TECHNIQUE: Multiple axial CT images of the pelvis were obtained without contrast. A dose lowering technique was used consistent with the principals of ALARA. FINDINGS: Bones appear moderately to extensively demineralized. Moderate degenerative changes involve the bilateral femoral acetabular joints. There are subacute appearing healing nondisplaced fractures noted involving the right superior and inferior pubic rami with surrounding callus formation. Myositis ossificans with mild muscular edema is noted within the abductor musculature adjacent to the fractures. Additionally, there is linear sclerosis involving the left superior pubic ramus nicely seen on image 459 series 2 and image 24 series 200 suggesting subacute to chronic nondisplaced fracture. No femoral or acetabular fracture identified. The sacrum appears intact. Moderate intervertebral disc space narrowing with endplate spurring at L4-L5. Severe multilevel facet arthrosis. Moderate colonic diverticulosis without diverticulitis. Pessary device noted within the vagina. Age-related atrophic changes with vascular calcifications involve the uterus. 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 No acute abnormality identified involving the soft tissues. IMPRESSION: 1. Subacute healing nondisplaced fractures involve the right superior and inferior pubic rami with surrounding callus formation. 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 2. Subacute to chronic nondisplaced fracture involves the left superior pubic ramus demonstrating linear sclerosis within this distribution. 3. Moderate osteoarthritis of the bilateral hips. 4. Moderate to extensive bone demineralization. The above report was generated using voice recognition software. It may contain grammatical, syntax or spelling errors. Electronically signed by: Britton Osborne M.D. 05/22/2017 7:41 AM Dictated Date/Time: 05/22/2017 7:21 AM
== END | disposition home or self-care (01) ==
LOC: C.CTS 06:44
PROVIDERS: ATTEND Physician Assistant Medical
DX: S32.501A Unspecified fracture of right pubis, initial encounter for closed fracture (principal); M61.051 Myositis ossificans traumatica, right thigh; R60.0 Localized edema; S32.502A Unspecified fracture of left pubis, initial encounter for closed fracture; M16.0 Bilateral primary osteoarthritis of hip; M81.8 Other osteoporosis without current pathological fracture; X58.XXXA Exposure to other specified factors, initial encounter

== ENCOUNTER → 2017-06-05 | Outpatient (CLI) | payer OTHER ==
[2017-06-06 01:10] LABS: BASO % 0.1 %; BASO ABS # 0.01 K/uL (0-0.2); EOS % 0.3 %; EOS ABS # 0.02 K/uL (0-0.5); HEMATOCRIT 31.7 % (37-47); HEMOGLOBIN 10.4 g/dL (12.0-16.0); IG# 0.02 K/uL (0.00-0.02); LYMPH % 12.8 %; LYMPH ABS # 0.92 K/uL (1.2-3.4); MEAN CELL VOLUME 82.3 fL (80-100); MEAN CORPUSCULAR HGB CONC 32.8 g/dl (32-36); MEAN PLATELET VOLUME 9.4 fL (7.4-10.4); MONO % 15.1 %; MONO ABS # 1.08 K/uL (0.11-0.59); NEUT % 71.4 %; NEUT ABS # 5.12 K/uL (1.4-6.5); PLATELET COUNT 242 K/uL (130-400); RED CELL DISTRIBUTION WIDTH SD 45.4 fL (36.4-46.3); WHITE BLOOD COUNT 7.17 K/uL (4.8-10.8)
[2017-06-06 01:33] LABS: ALBUMIN 3.4 gm/dl (3.4-5.0); ALT/SGPT 16 U/L (12-78); AST/SGOT 14 U/L (15-37); BLOOD UREA NITROGEN 21 mg/dl (7-18); CALCIUM 8.4 mg/dl (8.5-10.1); CARBON DIOXIDE 23 mmol/L (21-32); CREATININE 0.86 mg/dl (0.60-1.20); GLUCOSE 97 mg/dl (70-99); POTASSIUM 3.9 mmol/L (3.5-5.1); SODIUM 131 mmol/L (136-145)
[2017-06-06 01:34] LABS: INFLUENZA A PCR POS for Influ A (NEG); INFLUENZA B PCR Neg for Influ B (NEG)
[2017-06-06 01:36] LABS: ALKALINE PHOSPHATASE 152 U/L (45-117); TOTAL PROTEIN 7.4 gm/dl (6.4-8.2)
== END ==
LOC: C.LABCC 23:48
PROVIDERS: ATTEND Internal Medicine
DX: R50.9 Fever, unspecified (principal)

== ENCOUNTER → 2017-06-06 | Outpatient (CLI) | payer OTHER | LOC: C.LABCC 09:03 | PROVIDERS: ATTEND Internal Medicine | DX: R50.9 Fever, unspecified (principal) ==

== ENCOUNTER → 2017-07-03 | Outpatient (CLI) | payer OTHER ==
[2017-07-03 08:21] LABS: BLOOD UREA NITROGEN 21 mg/dl (7-18); CALCIUM 8.5 mg/dl (8.5-10.1); CARBON DIOXIDE 25 mmol/L (21-32); CREATININE 0.82 mg/dl (0.60-1.20); GLUCOSE 84 mg/dl (70-99); POTASSIUM 3.8 mmol/L (3.5-5.1); SODIUM 137 mmol/L (136-145)
== END ==
LOC: C.LABCC 07:48
PROVIDERS: ATTEND Internal Medicine
DX: E87.1 Hypo-osmolality and hyponatremia (principal)

== ENCOUNTER → 2017-08-24 | Outpatient (CLI) | payer OTHER ==
[2017-08-24 08:42] LABS: HEMOGLOBIN A1C 6.4 % (4.5-5.6)
== END ==
LOC: C.LABCC 07:52
PROVIDERS: ATTEND Internal Medicine
DX: E11.8 Type 2 diabetes mellitus with unspecified complications (principal)

== ENCOUNTER 2017-09-05 02:31 | Emergency (ER) | payer OTHER ==
[~2017-09-05] VITALS: Ht 165.1 cm; Wt 64.5 kg
[2017-09-05 02:38] VITALS: TEMP 36.4; Ht 165.1 cm; Wt 64.5 kg
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
[2017-09-05] MEDS ORDERED: SIMV20TA2 PO (03:12)
[2017-09-05] MEDS ORDERED: CLC100X PO (03:12)
[2017-09-05] MEDS ORDERED: POLY335019 PO (03:12)
[2017-09-05] MEDS ORDERED: CHOL2000 PO (03:18)
[2017-09-05] MEDS ORDERED: MOMLX PO (03:18)
[2017-09-05] MEDS ORDERED: BISA10SU38 PR (03:18)
[2017-09-05] MEDS ORDERED: ACET-1311 PO ×2 (03:18)
[2017-09-05] MEDS ORDERED: SODIENE PR (03:18)
[2017-09-05 03:53] LABS: HEMOGLOBIN 11.3 g/dL (12.0-16.0); MEAN CELL VOLUME 83.1 fL (80-100); MEAN CORPUSCULAR HEMOGLOBIN 27.6 pg (25-34); MEAN CORPUSCULAR HGB CONC 33.2 g/dl (32-36); MEAN PLATELET VOLUME 9.1 fL (7.4-10.4); PLATELET COUNT 240 K/uL (130-400); RED CELL DISTRIBUTION WIDTH CV 14.6 % (11.5-14.5); RED CELL DISTRIBUTION WIDTH SD 44.2 fL (36.4-46.3); WHITE BLOOD COUNT 11.78 K/uL (4.8-10.8)
[2017-09-05 04:17] LABS: CALCIUM 8.9 mg/dl (8.5-10.1); CREATININE 0.87 mg/dl (0.60-1.20)
[2017-09-05 05:13] VITALS: BP 166/83; PULSE 80; O2SAT 99
--- NOTE | 2017-09-05 06:34 | DIAGNOSTIC IMAGING REPORT ---
CT OF THE PELVIS WITHOUT CONTRAST CLINICAL HISTORY: Fall. COMPARISON STUDY: CT of the pelvis May 22, 2017. FINDINGS: Sacroiliac joints and symphysis pubis are intact. A pessary is in place. There is moderate arthritis of both hips with joint space narrowing and osteophytosis. There is no proximal femoral fracture. Note is made of an old fracture of the right inferior pubic ramus. Sclerosis within the upper coccyx suggests a healing fracture as well. There is no acute fracture within the pelvis or hips. Bladder is moderately distended. No pelvic hematoma is identified. Subcutaneous infiltration of the right buttock suggests a contusion. IMPRESSION: 1. No acute fracture within the pelvis or hips. 2. Old right inferior pubic ramus fracture. 2. Small subcutaneous right buttock contusion. Electronically signed by: Bubba Kellogg M.D. 09/05/2017 6:33 AM Dictated Date/Time: 09/05/2017 6:27 AM
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
--- NOTE | 2017-09-05 07:06 | DIAGNOSTIC IMAGING REPORT ---
LUMBAR SPINE WITHOUT CT DOSE: 505.09 mGycm HISTORY: Trauma eval for trauma TECHNIQUE: Multiaxial CT images of the lumbar spine were performed and reformatted in the sagittal and coronal plane without the use of contrast. A dose lowering technique was utilized adhering to the principles of ALARA. COMPARISON: Lateral lumbar spine 08/13/2013 FINDINGS: Mild old compression deformity superior endplate L3. Slightly progressive compression deformity superior endplate L4 and L1. Progressive degenerative disc change throughout. Fracture right lateral process L1. Fracture right lateral process of L2, L3, L4 IMPRESSION: 1. Pre-existing mild compression deformity L3. 2. Progressive compression deformity superior endplate L1 and L4. 3. Fracture right lateral process L2, L3, L4, and L1. 4. Progressive degenerative disc disease compared to the prior study. The above report was generated using voice recognition software. It may contain grammatical, syntax or spelling errors. Electronically signed by: Arsenio Buckley M.D. 09/05/2017 7:04 AM Dictated Date/Time: 09/05/2017 6:57 AM
--- NOTE | 2017-09-05 07:24 | DIAGNOSTIC IMAGING REPORT ---
HEAD WITHOUT CONTRAST (CT) CLINICAL HISTORY: 86 years-old Female presenting with eval for trauma - fall. TECHNIQUE: Multidetector CT imaging of the head was performed without the use of intravenous contrast. IV contrast: None. A dose lowering technique was used consistent with the principles of ALARA (as low as reasonably achievable). COMPARISON: 01/01/2017. CT DOSE (mGy.cm): The estimated cumulative dose is 638.56 mGycm. FINDINGS: Senior Ssis Developer topogram: Unremarkable. Proportional ventricular and sulcal prominence, likely age-related parenchymal volume loss. Brain parenchyma normal in appearance with preserved hung-white differentiation. No mass effect or midline shift. No hemorrhage or acute territorial infarct. No extra-axial fluid collection. Paranasal sinuses and mastoid air cells clear. Calvarium intact. Swelling and infiltration of the right parietal scalp vertex with trace subgaleal fluid or hematoma. No subjacent osseous injury. Evaluation of the skull base is degraded by motion artifact. IMPRESSION: 1. No acute intracranial abnormality. 2. Senior Ssis Developer contusion over the right parietal vertex with trace subgaleal fluid or hematoma. No subjacent osseous injury. Electronically signed by: Richard Nicole M.D. 09/05/2017 7:23 AM Dictated Date/Time: 09/05/2017 6:52 AM
== END 2017-09-05 05:15 | disposition home or self-care (01) ==
LOC: EDBD 02:31 → C.EDA 02:32
DX: S32.018A Other fracture of first lumbar vertebra, initial encounter for closed fracture (principal); S32.028A Other fracture of second lumbar vertebra, initial encounter for closed fracture; S32.038A Other fracture of third lumbar vertebra, initial encounter for closed fracture; S00.03XA Contusion of scalp, initial encounter; W19.XXXA Unspecified fall, initial encounter; Y92.192 Bathroom in other specified residential institution as the place of occurrence of the external cause; Z79.899 Other long term (current) drug therapy; I10 Essential (primary) hypertension; Z85.819 Personal history of malignant neoplasm of unspecified site of lip, oral cavity, and pharynx; Z80.9 Family history of malignant neoplasm, unspecified; Z83.3 Family history of diabetes mellitus; Z82.49 Family history of ischemic heart disease and other diseases of the circulatory system

== ENCOUNTER → 2017-09-11 | Outpatient (CLI) | payer OTHER ==
[~2017-09-11] MED LIST changes: +ACET-1311 PO; -AMOX1TAB43 PO; +BISA10SU38 PR; +CHOL2000 PO; -CLC100 PO; +CLC100X PO; +MOMLX PO; -MRLP17 PO; -OXYC-57 PO; +POLY335019 PO; +SIMV20TA2 PO; -SIMV40TA2 PO; +SODIENE PR
[2017-09-11 09:12] LABS: HEMATOCRIT 32.5 % (37-47); HEMOGLOBIN 10.6 g/dL (12.0-16.0); MEAN CELL VOLUME 83.8 fL (80-100); MEAN CORPUSCULAR HEMOGLOBIN 27.3 pg (25-34); MEAN CORPUSCULAR HGB CONC 32.6 g/dl (32-36); MEAN PLATELET VOLUME 9.3 fL (7.4-10.4); PLATELET COUNT 246 K/uL (130-400); RED CELL DISTRIBUTION WIDTH CV 14.7 % (11.5-14.5); RED CELL DISTRIBUTION WIDTH SD 45.1 fL (36.4-46.3); WHITE BLOOD COUNT 9.27 K/uL (4.8-10.8)
== END ==
LOC: C.LABCC 08:43
PROVIDERS: ATTEND Internal Medicine
DX: T14.8XXA Other injury of unspecified body region, initial encounter (principal); X58.XXXA Exposure to other specified factors, initial encounter

== ENCOUNTER → 2017-12-27 | Outpatient (CLI) | payer OTHER ==
[~2017-12-27] MED LIST changes: -AMLO-110 PO; +AMLO5TAB3 PO
[2017-12-27 09:08] LABS: HEMOGLOBIN A1C 6.6 % (4.5-5.6)
== END ==
LOC: C.LABCC 08:39
PROVIDERS: ATTEND Internal Medicine
DX: E11.9 Type 2 diabetes mellitus without complications (principal)